=== PATIENT | female | born 1940 | race Caucasian/White ===

== ENCOUNTER → 2017-01-09 09:45 | Outpatient (CLI) | payer MEDICARE, OTHER ==
[2016-03-10 07:57] VITALS: BMI 27.6
[~2017-01-09 09:45] MED LIST: ACIPHEX20 MG PO; ALLEGRA 60 MG T60 MG PO; ANTIVERT12.5 MG PO; BACTROBAN NASAL1 GM NASAL; BAYER CHEWABLE81 MG PO; BENADRYL CREA28.3 GM TP; BENADRYL INJ50 MG/ML IV; CHLORASEPTIC20 ML PO; COLACE100 MG PO; COUMADIN3 MG PO; COUMADIN5 MG PO; DULCOLAX10 MG/SUPP RC; ELIQUIS2.5 MG PO; FISH OIL 500 MG1 CAP PO; FLUTICASONE PRO16 GM NS; GAS-X80 MG PO; HYDROCODON-ACE1 EAC7 PO; HYDROCODONE-APA1 TAB PO; IMDUR30 MG PO; K-DUR20 MEQ PO; LASIX20 MG PO; LEVSIN/ANASP0.125 MG PO; LORTAB 5/500 TA1 TA2 PO; MIRALAX17 GM PO; MS CONTIN15 MG PO; NARCAN; NIASPAN500 MG PO; NORCO 10/325 TA1 TA1 PO; ONDANSETRON4 MG/2 M3 IV; PHOS FLUR; PHOS-NAK PAC1 PACKET PO; PLAVIX75 MG PO; PRILOSEC20 MG PO; PROTONIX40 MG PO; SENOKOT-S TABLE1 TAB PO; TOFRANIL10 MG PO; TRUSOPT 2 % OPT10 ML EACH EYE; WELCHOL625 MG PO; XALATAN 0.0052.5 ML EACH EYE; ZOFRAN4 MG PO
== END | disposition home or self-care (01) ==
LOC: D.NM 09:45
DX: M17.12 Unilateral primary osteoarthritis, left knee (principal)

== ENCOUNTER 2017-03-03 16:17 | Emergency (ER) | payer MEDICARE, OTHER ==
[2016-03-10 07:57] VITALS: BMI 27.6
[2017-03-03 18:00] LABS: BASOPHILS 0.3 % (0-2); EOSINOPHILS 2.3 % (0-7); HEMATOCRIT 39.9 % (36.0-48.0); HEMOGLOBIN 13.1 g/dL (12-16); IMMATURE GRANULOCYTES 0.3 % (0-5); LYMPHOCYTES 22.9 % (15-50); MCH 28.4 pg (26.0-34.0); MCHC 32.8 g/dL (31.0-37.0); MCV 86.6 fL (80.0-100.0); MEAN PLATELET VOLUME 10.9 fL (7.4-10.4); MONOCYTES 7.3 % (2-11); NEUTROPHILS 66.9 % (40-80); PLATELET COUNT 350 10x3/uL (130-400); RBC 4.61 10x6/uL (4.00-5.40); RDW 12.7 % (11.5-14.5); WBC 10.3 10x3/uL (4.8-10.8)
[2017-03-03 18:05] LABS: APPEARANCE CLEAR (CLEAR); BILIRUBIN NEGATIVE (NEGATIVE); COLOR YELLOW (YELLOW); GLUCOSE NEGATIVE (NEGATIVE); KETONE NEGATIVE (NEGATIVE); LEUKOCYTE ESTERASE 1+ (NEGATIVE); NITRITE NEGATIVE (NEGATIVE); PROTEIN NEGATIVE (NEGATIVE); SPECIFIC GRAVITY 1.015 (1.005-1.020); UROBILINOGEN NORMAL (NORMAL)
[2017-03-03 18:07] LABS: BACTERIA FEW /hpf (NONE SEEN); EPITHELIAL CELLS 0-5 /hpf (0-5); RED CELLS - URINE 0-5 /hpf (0-5)
[2017-03-03 18:14] LABS: ALBUMIN 3.4 g/dL (3.4-5.0); ALKALINE PHOSPHATASE 116 U/L (46-116); ALT (SGPT) 39 U/L (10-68); BILIRUBIN - TOTAL 0.39 mg/dL (0.2-1.3); CALC OSMOLALITY 275 mosm/kg (275-300); CALCIUM 8.9 mg/dL (8.5-10.1); CARBON DIOXIDE 30.2 mmol/L (21.0-32.0); CHLORIDE - SERUM 99 mmol/L (98-107); CREATININE - SERUM 1.1 mg/dL (0.6-1.3); GLUCOSE 158 mg/dL (74-106); POTASSIUM - SERUM 3.7 mmol/L (3.5-5.1); PROTEIN - SERUM 7.7 g/dL (6.4-8.2); SODIUM 136 mmol/L (136-145); UREA NITROGEN 15 mg/dL (7-18); eGFR NON AFRICAN AMERICAN 51 mL/min (90-120)
[2017-03-03 18:17] LABS: TROPONIN-I < 0.017 ng/mL (0.000-0.060)
== END 2017-03-03 21:47 | disposition home or self-care (01) ==
LOC: D.ER 16:17
PROVIDERS: Nurse Practitioner Family
DX: R06.00 Dyspnea, unspecified (principal); H40.9 Unspecified glaucoma; Z95.1 Presence of aortocoronary bypass graft

== ENCOUNTER → 2017-03-28 13:51 | Outpatient (CLI) | payer MEDICARE, OTHER ==
[2016-03-10 07:57] VITALS: BMI 27.6
== END | disposition home or self-care (01) ==
LOC: D.CT 13:51
DX: M54.5 Low back pain (principal)

== ENCOUNTER → 2017-09-11 16:07 | Outpatient (CLI) | payer MEDICARE, OTHER ==
[2016-03-10 07:57] VITALS: BMI 27.6
== END | disposition home or self-care (01) ==
LOC: D.LABREF 16:07
DX: N39.0 Urinary tract infection, site not specified (principal)

== ENCOUNTER → 2017-09-13 07:28 | Outpatient (CLI) | payer MEDICARE, OTHER ==
[2016-03-10 07:57] VITALS: BMI 27.6
== END | disposition home or self-care (01) ==
LOC: D.RAD 07:28
DX: R10.9 Unspecified abdominal pain (principal)

== ENCOUNTER → 2017-09-14 13:20 | Outpatient (CLI) | payer MEDICARE, OTHER ==
[2016-03-10 07:57] VITALS: BMI 27.6
== END | disposition home or self-care (01) ==
LOC: D.CT 13:20
DX: R10.9 Unspecified abdominal pain (principal); I73.9 Peripheral vascular disease, unspecified

== ENCOUNTER → 2018-07-24 17:38 | Outpatient (CLI) | payer MEDICARE, OTHER ==
[2016-03-10 07:57] VITALS: BMI 27.6
== END | disposition home or self-care (01) ==
LOC: D.LABREF 17:38
PROVIDERS: Urology
DX: R31.9 Hematuria, unspecified (principal); D72.829 Elevated white blood cell count, unspecified

== ENCOUNTER 2018-10-31 16:50 | Outpatient (CLI) | payer MEDICARE, OTHER ==
[~2018-10-31] VITALS: Ht 175.3 cm; Wt 66.4 kg
--- NOTE | ~2018-10-31 | HEMODYNAMI ---
PATIENT:JEFF RICHARDSON MEDICAL RECORD: [id number] : 40 LOCATION:[facility].2121 ADMISSION DATE: 10/31/18 Generatedon:11/01/20189:02 Patient name: JEFF RICHARDSON Patient #: [id number] SSN: : 1940 Date of study: 11/01/2018 Page: Of Hemodynamic Procedure Report Patient Data Patient Demographics Procedure consent was obtained First Name: JEFF Gender: Female Last Name: DEBRA : 1940 Middle Initial: HCRISTIANO Age: 77 year(s) Patient #: [id number] Race: Additional ID: [id number] Contact details Address: [address] [place] [address] State: [place] City: [place] Zip code: [address] Past Medical History Allergies Allergen Reaction Date Comments Reported Other allergy 03/08/2016 Iodine, Prednisone, Morphine Admission Admission Data Admission Date: 10/31/2018 Admission Time: 18:27 Room #: [facility] Procedure Procedure Types Cath Procedure Diagnostic Procedure LHC LHC w/Coronaries w/Grafts Sedation Charges Moderate Sedation up to 15 minutes PCI Procedure Coronary Stent Coronary Stent Initial PTCA PTCA Additional Procedure Description Procedure Date Procedure Date: 11/01/2018 Procedure Start Time: 8:41 Procedure End Time: 8:59 Procedure Staff Name Function Eyad Caceres MD Performing Physician Ananya Muniz RT Monitor Aislinn Lui RT Scrub Lance Hatch RN Nurse Procedure Data Cath Procedure Fluoroscopy Diagnostic fluoroscopy Total fluoroscopy Time: 6.5 time: 6.5 min min Diagnostic fluoroscopy Total fluoroscopy dose: 917 dose: 917 mGy mGy Contrast Material Contrast Material Type Amount (ml) Isovue 300 127 Entry Location Entry Primary Successful Side Size Upsize Upsize Entry Closure Succes sful Closure Location (Fr) 1 (Fr) 2 (Fr) Remarks Device Remarks Femoral Right 5 Fr 6 Fr Exoseal artery Short Estimated blood loss: 5 ml Diagnostic catheters Device Type Used For End Catheter Placement MULTIPACK Pigtail 5 Fr LV Angiography catheter MULTIPACK JL 4.0 5Fr Left Coronary catheter Angiography MULTIPACK 3DRC 5Fr Right Coronary catheter Angiography Procedure Complications No complications Procedure Medications Medication Administration Route Dosage Oxygen etCO2 Nasal cannula 2 l/min Lidocaine 2% added to field 20 Heparin Flush Bag added to field 2 bags (1000units/500ml NS) 0.9% NaCl I.V. 100 ml/hr Versed I.V. 1 mg Fentanyl I.V. 50 mcg Versed I.V. 1 mg Fentanyl I.V. 50 mcg Heparin Bolus I.V. 4000 units Plavix P.O. 75 mg Hemodynamics Rest Heart Rate: 64 (bpm) Pressure Samples Time Site Value (mmHg) Purpose Heart Use Rate(bpm) 8:43 LV 116/14,36 Snapshot 61 Snapshots Pre Cath Intra NCS Post Cath Vital Signs Time Heart Resp SPO2 etCO2 NIBP (mmHg) Rhythm Pain Sedation Rate (ipm) (%) (mmHg) Status Level (bpm) 8:31:25 61 26 98 0 161/67(87) NSR 0 (11) 10(A) , No pain 8:35:49 61 18 98 36.8 150/69(96) NSR 0 (11) 10(A) , No pain 8:40:10 61 15 100 30.8 158/71(104) NSR 0 (11) 10(A) , No pain 8:44:32 59 14 93 12 140/59(92) NSR 0 (11) 9(A) , No pain 8:48:52 62 14 94 9.7 120/55(92) NSR 0 (11) 9(A) , No pain 8:54:15 62 15 94 23.3 112/42(82) NSR 0 (11) 9(A) , No pain 8:58:25 63 22 95 28.6 120/58(87) NSR 0 (11) 10(A) , No pain Medications Time Medication Route Dose Verified Delivered Reason Notes Effectiveness by by 8:32:37 Oxygen etCO2 2 Eyad Lucas used for Nasal l/min Nicki Hatch RN procedure cannula 8:39:21 Versed I.V. 1 mg Eyad Lucas for sedation Nicki Hatch RN 8:39:26 Fentanyl I.V. 50 Eyad Martinsie for sedation mcg Nicki Hatch RN 8:44:44 Lidocaine 2% added 20ml Eyad Eyad for local to vial Nicki Caceres MD anesthetic field 8:44:51 Heparin Flush added 2 Eyadmavis Castano used for Bag to bags Nicki Caceres MD procedure (1000units/500ml field NS) 8:45:15 0.9% NaCl I.V. 100 Eyadmavis Martinsie Per physician ml/hr Nicki Hatch RN 8:47:54 Versed I.V. 1 mg Eyad Lucas for sedation Nicki Hatch RN 8:47:58 Fentanyl I.V. 50 Eyad Buffie for sedation mcg Nicki Hatch RN 8:51:29 Heparin Bolus I.V. 4000 Eyad Buffie for verifi ed units Nicki Hatch RN anticoagulation with dr caceres 9:00:42 Plavix P.O. 75 mg Eyad Lucas for Nicki Hatch RN antiplatelet therapy Procedure Log Time Note 8:16:38 Ananya Muniz RT(R) sent for patient. Start room use. 8:16:40 Time tracking: Regular hours (M-F 7:00 - 5:00) 8:16:48 Plan of Care:Hemodynamics will remain stable., Cardiac rhythm will remain stable., Comfort level will be maintained., Respiratory function will remain adequate., Patient/ family verbilizes understanding of procedure., Procedure tolerated without complication., Recovers from procedure without complications.. 8:19:48 Patient received from Med II to CCL 2 Alert and oriented. Tansferred to table in Supine position. 8:19:49 Warm blankets applied, and vivian hugger turned on for patient comfort. 8:19:49 Correct patient and procedure confirmed by team. 8:19:51 Signed procedure consent form obtained from patient. 8:19:52 ECG and BP/O2 sat monitors applied to patient. 8:30:07 Vital chart was started 8:30:09 Baseline sample Acquired. 8:30:13 Rhythm: sinus rhythm 8:30:15 Full Disclosure recording started 8:30:18 H&P Date Dictated: 11/01/2018 Within 30 days and on chart., H&P Addendum completed by physician on day of procedure. (MUST COMPLETE FOR ALL OUTPATIENTS). 8:30:19 Pre-procedure instructions explained to patient. 8:30:20 Pre-op teaching completed and patient verbalized understanding. 8:30:21 Family in waiting room. 8:30:22 Patient NPO since Midnight. 8:30:25 Is the patient allergic to Iodine/contrast media? Yes. 8:30:26 Was the patient premedicated? Yes 8:30:28 Is patient on blood thinner?Yes 8:30:30 ACC The patient was administered the following blood thiners within the last 24 hours: ACCPlavix 8:30:33 Patient diabetic? Yes. 8:30:34 If diabetic: On Metformin? No 8:30:36 Previous problem with sedation/anesthesia? No ? 8:30:43 Snore? Yes 8:30:45 Sleep apnea? No 8:30:46 Deviated septum? No 8:30:46 Opens mouth fully? Yes 8:30:47 Sticks out tongue? Yes 8:30:49 Airway obstruction? No ? 8:30:52 Dentures? No ? 8:30:56 Pre procedure: right dorsailis pedis pulse 2+ Normal; easily identifiable; not easily obliterated 8:30:59 Pre procedure: left dorsailis pedis pulse 2+ Normal; easily identifiable; not easily obliterated 8:31:01 Patient pain scale 0/10 ?. 8:31:12 IV patent on arrival in right forearm with 0.9% NaCl at [facility]. 8:31:14 Lab results completed and on chart. 8:31:18 Right groin area was prepped with chlora-prep and draped in sterile fashion 8:31:19 Alarms reviewed by R. N. 8:31:20 Sharps counted by scrub and verified by R.N. 8:32:37 Oxygen 2 l/min etCO2 Nasal cannula was administered by Lance Hatch RN; used for procedure; 8:35:54 Physician arrived 8:35:55 --------ALL STOP TIME OUT------ 8:35:55 Final Timeout: patient, procedure, and site verified with staff and physician. All members of the team are in agreement. 8:35:58 Right groin site verified by team. 8:36:01 Physical assessment completed. ASA score P 2 - A patient with mild systemic disease as per Eyad Caceres MD. 8:36:04 Sedation plan: IV Moderate Sedation Medication:Versed, Fentanyl 8:36:14 Use device set Femoral Dx 8:36:16 ACIST Syringe (90507) opened to sterile field. 8:36:16 Bag Decanter (2002S) opened to sterile field. 8:36:17 Medline Cath Pack ([id number]) opened to sterile field. 8:36:17 DIAGNOSTIC WIRE .035 260cm J wire (243850) opened to sterile field. 8:36:19 ACIST Hand Control (54517) opened to sterile field. 8:36:19 ACIST Manifold (09455) opened to sterile field. 8:36:20 DIAGNOSTIC Multipack 5Fr catheter set (TM2782) opened to sterile field. 8:36:21 Tegaderm 4 x 4 (1626W) opened to sterile field. 8:36:22 SHEATH 5FR [place] (QKI747) opened to sterile field. 8:37:34 Procedure type changed to Cath procedure, Diagnostic procedure, LHC, LHC w/Coronaries w/Grafts, Sedation Charges, Moderate Sedation up to 15 minutes, PCI procedure, Coronary Stent, Coronary Stent Initial, PTCA, PTCA Additional 8:39:21 Versed 1 mg I.V. was administered by Lance Hatch RN; for sedation; 8:39:26 Fentanyl 50 mcg I.V. was administered by Lance Hatch RN; for sedation; 8:41:24 Procedure started. 8:41:29 Local anesthetic to right femoral artery with Lidocaine 2% by Eyad Caceres MD.INITIAL ACCESS ONLY 8:42:25 A 5 Fr sheath was inserted into the Right Femoral artery 8:42:59 A MULTIPACK Pigtail 5 Fr catheter was advanced over the wire and used for LV Angiography. 8:43:50 LV hemodynamics recorded. 8:43:51 LV gram done using GOLDBERG 8:43:54 Injector settings: Ml/sec: 5, Volume: 15, 8:43:58 EF : 60 % 8:44:02 Catheter removed. 8:44:06 A MULTIPACK JL 4.0 5Fr catheter was advanced over the wire and used for Left Coronary Angiography. 8:44:44 Lidocaine 2% 20ml vial added to field was administered by Eyad Caceres MD; for local anesthetic; 8:44:51 Heparin Flush Bag (1000units/500ml NS) 2 bags added to field was administered by Eyad Caceres MD; used for procedure; 8:45:15 0.9% NaCl 100 ml/hr I.V. was administered by Lance Hatch RN; Per physician; 8:46:53 Catheter removed. 8:46:59 A MULTIPACK 3DRC 5Fr catheter was advanced over the wire and used for Right Coronary Angiography. 8:47:02 RCA angiography performed. 8:47:04 Injector settings: Ml/sec: 3, Volume: 6, 8:47:48 SVG to Diag angiography performed. 8:47:54 Versed 1 mg I.V. was administered by Lance Hatch RN; for sedation; 8:47:58 Fentanyl 50 mcg I.V. was administered by Lance Hatch RN; for sedation; 8:48:40 RCA angiography performed. 8:48:43 Injector settings: Ml/sec: 3, Volume: 6, 8:48:56 Catheter removed. 8:49:14 SHEATH 6FR [place] (JBC708) opened to sterile field. 8:49:15 INFLATOR Merit BasixCompak (CZ9340) opened to sterile field. 8:49:16 CHOICE PT Extra Support 182cm wire ([id number]) opened to sterile field. 8:50:39 GUIDE 6FR EBU 3.0 catheter ([id number]) opened to sterile field. 8:50:49 Sheath upsized to a 6 Fr Short. 8:50:54 6 Fr ebu 3 guide catheter was inserted over the wire 8:51:00 choice pt wire advanced. 8:51:29 Heparin Bolus 4000 units I.V. was administered by Lance Hatch RN; for anticoagulation; verified with dr caceres 8:53:11 Inflate balloon Inflation number: 1 A EUPHORA 3.0 x 15 Balloon ([id number]) was prepped and advanced across the Prox LAD, then inflated to 15 LINDSAY for 0:10 (min:sec). 8:53:24 Inflation number: 2 The EUPHORA 3.0 x 15 Balloon ([id number]) was reinflated across the Prox LAD, to 15 LINDSAY for 0:10 (min:sec). 8:53:44 Inflation number: 3 The EUPHORA 3.0 x 15 Balloon ([id number]) was reinflated across the Prox LAD, to 15 LINDSAY for 0:10 (min:sec). 8:54:10 Inflation number: 4 The EUPHORA 3.0 x 15 Balloon ([id number]) was reinflated across the Prox LAD, to 15 LINDSAY for 0:10 (min:sec). 8:54:34 Balloon removed over the wire. 8:56:29 Place stent Inflation Number: 5 A INTEGRITY RX 2.5 x 08 stent ([id number]) was prepped and advanced across the Prox LAD. The stent was deployed at 11 LINDSAY for 0:10 (min:sec). 8:56:53 Inflation number: 6 The stent balloon was then re-inflated across the Prox LAD to 15 LINDSAY for 0:10 (min:sec). 8:57:28 Wire redirected to diag. 8:57:44 Inflation number: 1 The stent balloon was then re-inflated across the 1st Diag to 21 LINDSAY for 0:10 (min:sec). 8:58:12 Stent catheter was removed intact over wire. 8:58:13 Wire removed. 8:58:13 Guide catheter removed. 8:58:19 EXOSEAL 6Fr (EX600) opened to sterile field. 8:58:31 Sheath removed intact; hemostasis achieved with Exoseal to the Right Femoral artery. 8:58:33 Procedure ended.(Physican Out) 8:58:41 Fluoroscopy time 06.50 minutes. 8:58:49 Flurop Dose total: 917 8:58:49 Fluoroscopy dose: 917 mGy 8:58:53 Contrast amount:Isovue 300 127ml. 8:58:54 Sharps counted by scrub and verified by R.N. 8:58:55 Insertion/operative site no bleeding no hematoma. 8:58:58 Post-op/insertion site Right Femoral artery dressed using a 4 x 4 and Tegaderm. 8:59:00 Post right femoral artery:stable 8:59:02 Post Procedure Pulses reassessed and unchanged 8:59:04 Post procedure rhythm: unchanged. 8:59:07 Estimated blood loss: 5 ml 8:59:08 Post procedure instruction explained to patient.Patient verbalizes understanding. 8:59:09 Patient needs reinforcement of post procedure teaching. 8:59:09 Procedure and supply charges have been captured, reviewed, submitted and are correct. 8:59:16 Procedure Complication : No complications 8:59:18 Vital chart was stopped 8:59:18 See physician's report for complete and final results. 8:59:21 Report given to [facility]. 8:59:23 Patient transfered to [facility] with Stretcher. 8:59:25 Procedure ended. 8:59:25 Full Disclosure recording stopped 8:59:57 ACC-PCI Only Patient was given prescriptions, or instructed by Eyad Caceres MD to start/continue the following medications upon discharge: Plavix 8:59:59 End room use (Document Last) 9:00:42 Plavix 75 mg P.O. was administered by Lance Hatch RN; for antiplatelet therapy; Intervention Summary Intervention Notes Time ActionType Lesion and Equipment Action# Pressure Duration Attributes Used 8:53:11 Inflate Prox LAD EUPHORA 3.0 1 15 00:10 balloon x 15 Balloon ([id number]) 8:53:24 Reinflate Prox LAD EUPHORA 3.0 2 15 00:10 balloon x 15 Balloon ([id number]) 8:53:44 Reinflate Prox LAD EUPHORA 3.0 3 15 00:10 balloon x 15 Balloon ([id number]) 8:54:10 Reinflate Prox LAD EUPHORA 3.0 4 15 00:10 balloon x 15 Balloon ([id number]) 8:56:29 Place stent Prox LAD INTEGRITY RX 5 11 00:10 2.5 x 08 stent ([id number]) 8:56:53 Reinflate Prox LAD INTEGRITY RX 6 15 00:10 stent 2.5 x 08 balloon stent ([id number]) 8:57:44 Reinflate 1st Diag INTEGRITY RX 1 21 00:10 stent 2.5 x 08 balloon stent ([id number]) Device Usage Item Name Manufacture Quantity Catalog Number Hospital Part Current Mini [facility] Lot# / Charge Number Stock Stock Serial# Code ACIST Acist 1 93009 990857 842456 264632 20 Syringe Medical (47924) Systems Inc Bag Decanter Microtek 1 009405 03348 293206 5 () Medical Inc. Medline Cath Medline 1 [id number] 387415 12946 483519 5 Pack ([id number]) DIAGNOSTIC St Oscar 1 526271 626626 876028 087973 30 WIRE .035 260cm J wire (832986) ACIST Hand Acist 1 40905 439779 960560 518225 5 Control Medical (11219) Systems Inc ACIST Acist 1 58936 019871 503973 961031 5 Manifold Medical (45636) Systems Inc DIAGNOSTIC Cardinal 1 RR6206 480232 59093 287799 30 Multipack Health 5Fr catheter set (GF9817) Tegaderm 4 x 3M 1 1626W 526126 906650 254377 5 4 (1626W) SHEATH 5FR Terumo 1 GUT557 977023 651615 471847 5 [place] (LUK381) MULTIPACK Cardinal 1 614236 5 Pigtail 5 Fr Health catheter MULTIPACK JL Cardinal 1 208128 5 4.0 5Fr Health catheter MULTIPACK Cardinal 1 302726 5 3DRC 5Fr Health catheter SHEATH 6FR Terumo 1 LNX586 792511 756301 417760 40 [place] (RLL198) INFLATOR Merit 1 NS9626 955712 357279 428295 15 Merit [facility] [place] Medical BasixCompak (BO5374) CHOICE PT [place] 1 [id number] 310681 385974 969651 5 Extra Scientific Support 182cm wire ([id number]) GUIDE 6FR Medtronic 1 [id number] 789130 48931 994799 0 EBU 3.0 catheter (BG6DBK77) EUPHORA 3.0 Medtronic 1 [id number] 293254 369309 033212 5 [id number] x 15 Balloon ([id number]) INTEGRITY RX Medtronic 1 [id number] 826581 555795 973439 5 [id number] 2.5 x 08 stent ([id number]) EXOSEAL 6Fr Cardinal 1 EX600 099028 629616 716450 10 (EX600) Health Signature Audit [place] Stage Time Signature Unsigned Intra-Procedure 11/01/2018 Aislinn Lui 9:02:03 AM RT(R) Signatures Monitor : Ananya Muniz Signature : RT Date : Time : [facility] [address] [place] [address]
[2018-10-31] MEDS ORDERED: REGLAN10 MG PO (17:07)
[2018-10-31] MEDS ORDERED: DEXILANT60 MG PO (17:07)
[2018-10-31 17:31] LABS: BASOPHILS 0.2 % (0-2); EOSINOPHILS 3.1 % (0-7); IMMATURE GRANULOCYTES 0.2 % (0-5); MCH 30.1 pg (26.0-34.0); MCHC 34.1 g/dL (31.0-37.0); MCV 88.2 fL (80.0-100.0); MEAN PLATELET VOLUME 10.8 fL (7.4-10.4); MONOCYTES 8.4 % (2-11); NEUTROPHILS 62.1 % (40-80); RBC 4.65 10x6/uL (4.00-5.40); RDW 12.4 % (11.5-14.5); WBC 8.8 10x3/uL (4.8-10.8)
[2018-10-31 17:34] LABS: PLATELET COUNT 278 10x3/uL (130-400)
[2018-10-31 17:40] VITALS: BP 139/63
[2018-10-31 17:45] LABS: ALBUMIN 3.4 g/dL (3.4-5.0); ALKALINE PHOSPHATASE 120 U/L (46-116); ALT (SGPT) 14 U/L (10-68); BILIRUBIN - TOTAL 0.24 mg/dL (0.2-1.3); CALC OSMOLALITY 280 mosm/kg (275-300); CALCIUM 8.8 mg/dL (8.5-10.1); CARBON DIOXIDE 23.4 mmol/L (21.0-32.0); CHLORIDE - SERUM 101 mmol/L (98-107); CREATININE - SERUM 1.3 mg/dL (0.6-1.3); GLUCOSE 160 mg/dL (74-106); POTASSIUM - SERUM 4.2 mmol/L (3.5-5.1); PROTEIN - SERUM 7.5 g/dL (6.4-8.2); SODIUM 138 mmol/L (136-145); UREA NITROGEN 17 mg/dL (7-18); eGFR NON AFRICAN AMERICAN 42 mL/min (90-120)
[2018-10-31 18:02] LABS: CKMB 0.7 U/L (0.0-3.6); CREATINE KINASE 70 UL (21-215); TROPONIN-I < 0.017 ng/mL (0.000-0.060)
[2018-10-31 20:00] VITALS: BP 124/64
[2018-10-31 22:33] VITALS: BP 124/69; Ht 175.3 cm; Wt 66.4 kg
[2018-11-01] VITALS: BP 122/58
[2018-11-01 05:23] VITALS: BP 139/62
[2018-11-01 08:33] VITALS: BP 165/59
[2018-11-01 12:05] VITALS: BP 135/62
[2018-11-01] MEDS ORDERED: PLAVIX75 MG PO (13:12)
--- NOTE | 2018-11-01 13:37 | OP ---
PATIENT NAME: JEFF RICHARDSON MEDICAL RECORD: [id number] :40 LOCATION:D.M2 D.2121 ADMISSION DATE:10/31/18 SURGEON: ANDRIY HARKINS MD DATE OF OPERATION: 11/01/2018 PROCEDURES: 1. PTCA stent LAD. 2. PTCA LAD diagonal. 3. Left heart catheterization. 4. Selective coronary angiography. 5. Left ventriculogram. INDICATION: Unstable angina and coronary artery disease. PROCEDURE IN DETAIL: After informed consent was obtained and after a detailed description of risks, benefits as well as alternative therapies, the patient elected to proceed with angiogram and angioplasty. The right femoral area was prepped and draped in normal sterile fashion. Right femoral artery was cannulated via modified Seldinger technique with placement of 6-Bahraini sheath. All catheters exchanged through this sheath. FINDINGS: Left ventriculogram was performed in standard 30-degree GOLDBERG view, reveals good cardiac wall motion throughout all segments. Overall ejection fraction estimated 60%. SELECTIVE CORONARY ANGIOGRAPHY: 1. Left main is with no significant angiographic disease. 2. Left anterior descending has previously placed stents in the LAD and the second diagonal, both have greater than 70% in-stent restenosis. 3. The circumflex has moderate irregularities, but no flow-limiting stenosis. 4. The right coronary artery has previously placed stents, these are widely patent with no significant restenosis. No disease elsewise throughout the RCA or its branches. 5. Vein graft to the first diagonal is widely patent. Distal first diagonal is widely patent. PTCA STENT OF THE LAD: The stent used is a 2.5 x 8 mm Integrity. The stent balloon was then used for the diagonal with inflations up to 21 atmospheres. Result was 0% residual. IMPRESSION: Successful PTCA stent of the LAD and PTCA of the diagonal, both going from 70% to 80% in-stent restenosis to 0% residual. TRANSINT:[id number] Voice Confirmation ID: [id number] DOCUMENT ID: [id number] ANDRIY HARKINS MD at 1337 CC: [id number] DICTATION DATE: 11/01/18 0908 IMPORT DISPATCHER: 11/01/18 1003 ADM IN [place] [id number] [place] [id number]
--- NOTE | 2018-11-01 13:37 | HP ---
PATIENT: JEFF NAYAK MEDICAL RECORD: [id number] ACCOUNT: [id number] LOCATION:[address] : 40 ADMISSION DATE: 10/31/18 PCP: BUBBA BLACKBURN MD HISTORY AND PHYSICAL EXAMINATION DIAGNOSES: 1. Unstable angina. 2. Coronary artery disease. 3. Previous percutaneous transluminal coronary angioplasty and stent. HISTORY OF PRESENT ILLNESS: Ms. Nayak has had chest discomfort that started today. She has had multiple episodes, it is like that of her previous angina. Last cardiac intervention was in 2016. Her EKG is with nonspecific ST-T abnormalities. She continues to have episodes of pain. PHYSICAL EXAMINATION: GENERAL APPEARANCE: Well nourished, well developed, appears stated age. Level of distress, comfortable. PSYCHIATRIC: Mental status, alert, normal affect. Orientation, oriented to time, place and person. EYES: Lids and conjunctiva, noninjected. No discharge, no pallor. ENT: Lips, teeth, gums, normal dentition. Oropharynx, no cyanosis, no pallor. NECK: Carotid arteries, bilateral normal upstroke, no bruits, no thrills. JUGULAR VEINS: No jugular venous pressure or distention. CERVICAL LYMPH NODES: Nontender, nonenlarged. THYROID: Not enlarged. Nontender. No nodules. LUNGS: Respiratory effort, unlabored. CHEST: Normal curvature. No thoracic deformity. No chest wall tenderness. Percussion, resonant. Auscultation, clear. No wheezes, no rales, no rhonchi. CARDIOVASCULAR: Precordial exam, nondisplaced. No heaves or pericardial thrills. Rate and rhythm, regular. Heart sounds, normal S1, normal S2. No S3, no gallop, no rub. Systolic murmur, not heard. Diastolic murmur, not heard. EXTREMITIES: No cyanosis, no edema. Peripheral pulses, full and equal in all extremities, except as noted. No bruits appreciated. ABDOMEN: Soft, nondistended. Normal aorta. No bruit. Nontender. No masses. Liver, nontender, no hepatomegaly. Spleen, nontender, no splenomegaly. MUSCULOSKELETAL: No joint tenderness. No joint swelling. No erythema. NEUROLOGICAL: Normal gait, normal strength, normal tone. SKIN: Warm and dry. OVERALL IMPRESSION: Chest pain in an unstable fashion. We will load with Plavix. SHE IS ALLERGIC TO IODINE. We will give her steroids tonight and tomorrow. Proceed with coronary angiography in the a.m. TRANSINT:[id number] Voice Confirmation ID: [id number] DOCUMENT ID: [id number] HISTORY AND PHYSICAL [id number] JEFF NAYAK JEFFREY MD at 1337 CC: [id number] DICTATION DATE: 10/31/181828 HUMAN RESOURCES BENEFITS MANAGER: 10/31/182016 ADM IN [facility] [address] [place] [address]
--- NOTE | 2018-11-01 17:10 | MORECARE ---
CASE MANAGEMENT DISCHARGE SUMMARY PATIENT: JEFF RICHARDSON UNIT: [id number] ADM DATE: 10/31/18 AGE: 77 : 40 SEX: F ROOM/BED: D.0083 AUTHOR: TOÑITO CISNEROS PHYSICIAN: REFERRING PHYSICIAN: ANDRIY HARKINS MD DATE OF SERVICE: 11/01/18 Discharge Plan Patient Name: JEFF RICHARDSON [facility] [facility] 1940 Planned Disposition: Home Anticipated Discharge Date: 11/01/18 Discharge Date: 11/01/2018 Expected LOS: 1 Initial Reviewer: [email or web address] Initial Review Date: 11/01/2018 Generated: 11/01/18 6:10 pm Patient Name: JEFF RICHARDSON Page [id number] at 1710 All edits/amendments must be made on the electronic document DICTATION DATE: 11/01/181708 TAIL END RIDER: LORELEI 11/01/181708 RPT#: [id number] DC DATE:11/01/18 STATUS: DIS IN [facility] [address] [place] [address] END OF REPORT
== END 2018-11-01 15:42 | disposition home or self-care (01) ==
LOC: OBSVTIME → D.ER 16:50 → D.OPS 16:50 → D.M2 18:27 → D.ER 18:27 → OBSVTIME 18:27 → D.ER 19:14 → D.OPS 11-01 15:42 → D.M2 11-01 15:42
PROVIDERS: Family Medicine
DX: I25.110 Atherosclerotic heart disease of native coronary artery with unstable angina pectoris (principal); Z95.5 Presence of coronary angioplasty implant and graft; Z01.812 Encounter for preprocedural laboratory examination

== ENCOUNTER 2019-05-15 21:11 | Observation (INO) | payer MEDICARE, OTHER ==
[~2019-05-15] VITALS: Ht 175.3 cm; Wt 69.6 kg
--- NOTE | ~2019-05-15 | HEMODYNAMI ---
PATIENT:JEFF RICHARDSON MEDICAL RECORD: [id number] : 40 LOCATION:[facility] D.2117 [id number] ADMISSION DATE: 05/16/19 Generatedon:05/16/201914:39 Patient name: JEFF RICHARDSON Patient #: [id number] SSN: : 1940 Date of study: 05/16/2019 Page: Of Hemodynamic Procedure Report Patient Data Patient Demographics Procedure consent was obtained First Name: JEFF Gender: Female Last Name: DEBRA : 1940 Middle Initial: CHRISTIANO Age: 78 year(s) Patient #: [id number] Race: Additional ID: [id number] Contact details [address]: [address] [place] [address] State: [place] City: [place] Zip code: [address] Past Medical History Allergies Allergen Reaction Date Comments Reported Other allergy 03/08/2016 Iodine, Prednisone, Morphine Other allergy 05/16/2019 IODINATED CONTRAST Admission Admission Data Admission Date: 05/16/2019 Admission Time: 0:22 Room #: D.2117 Weight (lbs.): 154.32 Weight (kg.): 70 Lab Results Lab Result Date: 05/16/2019 Lab Result Time: 0:00 Biochemistry Name Units Result Min Max BUN mg/dl 16 --(---*)-- 7 18 Creatinine mg/dl 1 --(--*-)-- 0.6 1.3 eGFR ml/min 57 *-(----)-- 90 120 NONAFRICAN CBC Name Units Result Min Max Hematocrit % 38.9 *-(----)-- 42 54 Hemoglobin g/dl 13.3 -*(----)-- 13.5 17.5 Procedure Procedure Types Cath Procedure Diagnostic Procedure LHC LHC w/Coronaries w/Grafts PCI Procedure Coronary Stent Coronary Stent Initial PTCA PTCA Additional Procedure Description Procedure Date Procedure Date: 05/16/2019 Procedure Start Time: 14:21 Procedure End Time: 14:38 Procedure Staff Name Function Eyad Caceres MD Performing Physician Brandt Manuel RT Monitor Nelsy Galloway RT Scrub Dia Campoverde RT Scrub Usha Faust RN Nurse Procedure Data Cath Procedure Fluoroscopy Diagnostic fluoroscopy Total fluoroscopy Time: 5.4 time: 5.4 min min Diagnostic fluoroscopy Total fluoroscopy dose: 806 dose: 806 mGy mGy Contrast Material Contrast Material Type Amount (ml) Isovue 370 98 Entry Location Entry Primary Successful Side Size Upsize Upsize Entry Closure Succes sful Closure Location (Fr) 1 (Fr) 2 (Fr) Remarks Device Remarks Femoral Right 5 Fr 6 Fr Exoseal artery Short Estimated blood loss: 10 ml Diagnostic catheters Device Type Used For End Catheter Placement MULTIPACK Pigtail 5 Fr Procedure catheter MULTIPACK JL 4.0 5Fr Procedure catheter MULTIPACK 3DRC 5Fr Procedure catheter DIAGNOSTIC AR2 MOD 5 Fr Procedure catheter ([id number]) Procedure Complications No complications Procedure Medications Medication Administration Route Dosage 0.9% NaCl I.V. 100 ml/hr Oxygen etCO2 Nasal cannula 2 l/min Lidocaine 2% added to field 20 Heparin Flush Bag added to field 2 bags (1000units/500ml NS) Versed I.V. 1 mg Fentanyl I.V. 25 mcg Heparin Bolus I.V. 4000 units Hemodynamics Rest HGB: 13.3 (g/dl) Heart Rate: 58 (bpm) Pressure Samples Time Site Value (mmHg) Purpose Heart Use Rate(bpm) 14:26 AO 129/61(91) Snapshot 62 Snapshots Pre Cath Intra NCS Post Cath Vital Signs Time Heart Resp SPO2 etCO2 NIBP (mmHg) Rhythm Pain Sedation Rate (ipm) (%) (mmHg) Status Level (bpm) 14:13:12 59 14 97 36 157/68(114) SB 0 (11) 10(A) , No pain 14:17:36 56 17 96 35.1 139/68(111) SB 0 (11) 9(A) , No pain 14:21:54 56 13 96 35.1 140/64(110) SB 0 (11) 9(A) , No pain 14:26:12 62 16 96 35 139/65(110) SB 0 (11) 9(A) , No pain 14:30:30 64 15 96 36.5 135/65(101) SB 0 (11) 9(A) , No pain 14:34:46 65 16 96 38 142/65(110) SB 0 (11) 10(A) , No pain Medications Time Medication Route Dose Verified Delivered Reason Notes Effectiveness by by 14:12:07 0.9% NaCl I.V. 100 Eyad Usha used for ml/hr Nicki Faust tennis coach 14:12:13 Oxygen etCO2 2 Eyad Usha used for Nasal l/min Nicki Faust procedure cannula RN 14:12:18 Lidocaine 2% added 20ml Eyad Eyad for local to vial Nicki Caceres MD anesthetic field 14:12:21 Heparin Flush added 2 Eyad Eyad used for Bag to bags Nicki Caceres MD procedure (1000units/500ml field NS) 14:15:40 Versed I.V. 1 mg Eyad Usha for sedation Nicki Faust RN 14:15:51 Fentanyl I.V. 25 Eyad Usha for sedation mcg Nicki Faust RN 14:26:00 Heparin Bolus I.V. 4000 Eyad Orozcoyla for verif ied units Nicki Faust anticoagulation with Dr. MARGARETH Caceres Procedure Log Time Note 13:53:52 Signed procedure consent form obtained from patient. 13:53:53 Diagnostic Cath status Urgent 13:53:54 Time tracking: Regular hours (M-F 7:00 - 5:00) 13:53:58 Plan of Care:Hemodynamics will remain stable., Cardiac rhythm will remain stable., Comfort level will be maintained., Respiratory function will remain adequate., Patient/ family verbilizes understanding of procedure., Procedure tolerated without complication., Recovers from procedure without complications.. 13:54:00 Usha Faust RN sent for patient. Start room use. 13:54:42 Patient allergic to Other allergyIODINATED CONTRAST 13:54:51 Patient Weight : 154.32 lbs 13:55:26 Lab Result : Creatinine 1 mg/dl 13:55:26 Lab Result : BUN 16 mg/dl 13:55:26 Lab Result : Hemoglobin 13.3 g/dl 13:55:26 Lab Result : eGFR NONAFRICAN 57 ml/min 13:55:26 Lab Result : Hematocrit 38.9 % 14:03:27 Patient received from Med II to CCL 1 Alert and oriented. Tansferred to table in Supine position. 14:03:28 Warm blankets applied, and vivian hugger turned on for patient comfort. 14:03:28 Correct patient and procedure confirmed by team. 14:03:29 ECG and BP/O2 sat monitors applied to patient. 14:11:56 Vital chart was started 14:12:07 0.9% NaCl 100 ml/hr I.V. was administered by Usha Faust RN; used for procedure; 14:12:13 Oxygen 2 l/min etCO2 Nasal cannula was administered by Usha Faust RN; used for procedure; 14:12:18 Lidocaine 2% 20ml vial added to field was administered by Eyad Caceres MD; for local anesthetic; 14:12:21 Heparin Flush Bag (1000units/500ml NS) 2 bags added to field was administered by Eyad Caceres MD; used for procedure; 14:12:27 Baseline sample Acquired. 14:12:32 Rhythm: sinus bradycardia 14:12:34 Full Disclosure recording started 14:12:44 H&P Date Dictated: 05/15/2019 Within 30 days and on chart.. 14:12:45 Pre-procedure instructions explained to patient. 14:12:46 Pre-op teaching completed and patient verbalized understanding. 14:12:49 Family in patients room. 14:12:50 Patient NPO since Midnight. 14:12:53 Is the patient allergic to Iodine/contrast media? Yes. 14:12:55 Is patient on blood thinner?Yes 14:13:00 ACC The patient was administered the following blood thiners within the last 24 hours: ACCPlavix 14:13:02 Patient diabetic? No. 14:13:04 Previous problem with sedation/anesthesia? No ? 14:13:05 Snore? Yes 14:13:13 Sleep apnea? No 14:13:15 Deviated septum? No 14:13:16 Opens mouth fully? Yes 14:13:16 Sticks out tongue? Yes 14:13:18 Airway obstruction? No ? 14:13:20 Dentures? No ? 14:13:23 Pre procedure: right dorsailis pedis pulse 1+ Palpable, but thready & weak; easily obliterated 14:13:27 Patient pain scale 0/10 ?. 14:13:33 IV patent on arrival in left forearm with 0.9% NaCl at [facility]. 14:13:36 Lab results completed and on chart. 14:13:39 Right groin area was prepped with chlora-prep and draped in sterile fashion 14:13:41 Alarms reviewed by R. N. 14:13:41 Sharps counted by scrub and verified by R.N. 14:13:44 Use device set Femoral Dx 14:13:46 Tegaderm 4 x 4 (1626W) opened to sterile field. 14:13:47 ACIST Manifold (96843) opened to sterile field. 14:13:51 ACIST Hand Control (72616) opened to sterile field. 14:13:53 ACIST Syringe (10133) opened to sterile field. 14:13:54 Bag Decanter (2002S) opened to sterile field. 14:13:54 Medline Cath Pack ([id number]) opened to sterile field. 14:13:56 DIAGNOSTIC Multipack 5Fr catheter set (YJ1250) opened to sterile field. 14:13:58 EMERALD Guide Wire (502-473) opened to sterile field. 14:13:58 SHEATH 5FR Bayard (MPY989) opened to sterile field. 14:14:48 --------ALL STOP TIME OUT------ 14:14:48 Final Timeout: patient, procedure, and site verified with staff and physician. All members of the team are in agreement. 14:14:51 Right groin site verified by team. 14:14:56 Fire Safety Assessment: A--An alcohol-based skin anteseptic being used preoperatively., C--Open oxygen or nitrous oxide is being used., D--An ESU, laser, or fiber-optic light is being used. 14:15:00 Physical assessment completed. ASA score P 2 - A patient with mild systemic disease as per Eyad Caceres MD. 14:15:11 3a) 45-59 Moderately reduced kidney function. 14:15:28 Maximum allowable contrast does (3.7 X eGFR X 0.75)158 ml. 14:15:32 Sedation plan: IV Moderate Sedation Medication:Versed, Fentanyl 14:15:40 Versed 1 mg I.V. was administered by Usha Faust RN; for sedation; 14:15:51 Fentanyl 25 mcg I.V. was administered by Usha Faust RN; for sedation; 14:21:19 Procedure started. 14:21:26 Local anesthetic to right femoral artery with Lidocaine 2% by Eyad Caceres MD.INITIAL ACCESS ONLY 14:21:37 A 5 Fr sheath was inserted into the Right Femoral artery 14:22:35 A MULTIPACK Pigtail 5 Fr catheter was advanced over the wire and used for Procedure. 14:22:37 LV angiography performed. 14:22:38 LV gram done using GOLDBERG 14:22:43 EF : 55 % 14:23:04 Injector settings: Ml/sec: 7, Volume: 15, 14:23:05 Catheter removed. 14:23:09 A MULTIPACK JL 4.0 5Fr catheter was advanced over the wire and used for Procedure. 14:23:11 LCA angiography performed. 14:24:15 Catheter removed. 14:24:[address] [facility] PCI 14:24:30 SHEATH 6FR Bayard (NRY037) opened to sterile field. 14:24:41 A MULTIPACK 3DRC 5Fr catheter was advanced over the wire and used for Procedure. 14:24:43 INFLATOR Merit BasixCompak (VB1610) opened to sterile field. 14:24:46 GUIDE 6FR XBLAD 3.5 catheter ([id number]) opened to sterile field. 14:24:48 CHOICE PT Extra Support 182cm wire ([id number]) opened to sterile field. 14:25:36 KOLB CLOSED. 14:25:37 RCA angiography performed. 14:25:59 Catheter removed. 14:26:00 Heparin Bolus 4000 units I.V. was administered by Usha Faust RN; for anticoagulation; verified with Dr. Caceres 14:26:12 A DIAGNOSTIC AR2 MOD 5 Fr catheter ([id number]) was advanced over the wire and used for Procedure. 14:26:38 SVG to Circ angiography performed. 14:27:08 Catheter removed. 14:27:20 Sheath upsized to a 6 Fr Short. 14:27:33 Pre PCI Site: [place] Diag1 has 95% stenosis. 14:27:40 6 Fr XBLAD 3.5 guide catheter was inserted over the wire 14:28:16 CPTXS wire advanced. 14:29:44 Pre PCI Site: [place] pLAD has 90% stenosis. 14:30:19 Wire advanced across lesion. 14:30:32 CHOICE PT Extra Support 182cm wire ([id number]) opened to sterile field. 14:30:42 2ND CPTXS wire advanced. 14:31:06 2nd wire advanced down the LAD. 14:33:15 Place stent Inflation Number: 1 A LES RX 2.5 x 12 stent ([id number]) was prepped and advanced across the 1st Diag 0. The stent was deployed at 21 LINDSAY for 0:10 (min:sec) . 14:33:49 Balloon removed over the wire. 14:33:52 Wire removed. 14:34:24 Inflation number: 1 The stent balloon was then re-inflated across the Prox LAD 90 to 17 LINDSAY for 0:10 (min:sec) . 14:34:53 Multiple inflations made at 17 Atms. 14:35:19 Balloon removed over the wire. 14:35:20 Wire removed. 14:35:21 Guide catheter removed. 14:35:34 EXOSEAL 6Fr (EX600) opened to sterile field. 14:35:51 Sheath removed intact; hemostasis achieved with Exoseal to the Right Femoral artery. 14:35:55 Procedure ended.(Physican Out) 14:37:20 Fluoroscopy time 05.40 minutes. 14:37:23 Fluoroscopy dose: 806 mGy 14:37:23 Flurop Dose total: 806 14:37:28 Contrast amount:Isovue 370 98ml. 14:37:29 Sharps counted by scrub and verified by R.N. 14:37:30 Insertion/operative site no bleeding no hematoma. 14:37:33 Post-op/insertion site Right Femoral artery dressed using a 4 x 4 and Tegaderm. 14:37:34 Post Procedure Pulses reassessed and unchanged 14:37:37 Post-procedure physical assessment completed. ASA score P 2 - A patient with mild systemic disease as per Eyad Ccaeres MD. 14:37:39 Post procedure rhythm: unchanged. 14:37:42 Estimated blood loss: 10 ml 14:37:44 Post procedure instruction explained to patient.Patient verbalizes understanding. 14:37:44 Patient needs reinforcement of post procedure teaching. 14:37:57 Procedure type changed to Cath procedure, Diagnostic procedure, LHC, LHC w/Coronaries w/Grafts, PCI procedure, Coronary Stent, Coronary Stent Initial, PTCA, PTCA Additional 14:37:58 Procedure and supply charges have been captured, reviewed, submitted and are correct. 14:38:01 Procedure Complication : No complications 14:38:34 Vital chart was stopped 14:38:34 See physician's report for complete and final results. 14:38:38 Report given to [facility] II. 14:38:40 Patient transfered to [facility] with Bed. 14:38:43 Procedure ended. 14:38:43 Full Disclosure recording stopped 14:38:47 End room use (Document Last) Intervention Summary Intervention Notes Time ActionType Lesion and Equipment Used Action# Pressure Duration Attributes 14:33:15 Place stent 1st Diag LES RX 2.5 x 1 21 00:10 12 stent ([id number]) 14:34:24 Reinflate Prox LAD LES RX 2.5 x 1 17 00:10 stent 12 stent balloon ([id number]) Device Usage Item Name Manufacture Quantity Catalog Number Hospital Part Current M inimal Lot# / Charge Number Stock Stock Serial# Code Tegaderm 4 x 4 3M 1 1626W 924225 216898 312515 5 (1626W) ACIST Manifold Acist 1 65012 757508 156400 609482 5 (21116) Medical Systems Inc ACIST Hand Acist 1 03663 305351 132465 034644 5 Control Medical (79454) Systems Inc ACIST Syringe Acist 1 32430 573788 101477 810189 2 0 (17771) Medical Systems Inc Bag Decanter Microtek 1 2002S 636482 52502 908034 5 (2002S) Medical Inc. Medline Cath Medline 1 [id number] 377459 63235 914982 5 Pack ([id number]) DIAGNOSTIC Cardinal 1 PS1219 869681 20833 099794 3 0 Multipack 5Fr Health catheter set (WZ7245) EMERALD Guide Cardinal 1 502-455 521988 173740 045355 5 Wire (502-455) Health SHEATH 5FR Terumo 1 JSL930 701262 886457 738394 5 Bayard (GDP660) MULTIPACK Cardinal 1 650804 5 Pigtail 5 Fr Health catheter MULTIPACK JL Cardinal 1 491850 5 4.0 5Fr Health catheter SHEATH 6FR Terumo 1 KJA144 360873 810786 196082 4 0 Bayard (YZC666) MULTIPACK 3DRC Cardinal 1 866383 5 5Fr catheter Health INFLATOR Merit Merit 1 XF1708 953772 399345 170707 1 5 [facility] (AJ3596) GUIDE 6FR Cardinal 1 [id number] 922329 089703 149310 1 0 XBLAD 3.5 Health catheter ([id number]) CHOICE PT [place] 2 [id number] 724497 980272 886890 5 Extra Support Scientific 182cm wire ([id number]) DIAGNOSTIC AR2 Cardinal 1 [id number] 019766 526495 758661 2 0 MOD 5 Fr Health catheter (143300F) LES RX 2.5 x Medtronic 1 [id number] 163158 4223779 518089 5 [id number] 12 stent ([id number]) EXOSEAL 6Fr Cardinal 1 EX600 054583 164650 438067 1 0 (EX600) Health Signature Audit [place] Stage Time Signature Unsigned Intra-Procedure 05/16/2019 Brandt Manuel 2:38:58 PM RT(R) Signatures Monitor : Brandt Manuel RT Signature : Date : Time : [place] [address] [place] [address]
[~2019-05-15 21:11] MED LIST changes: +DEXILANT60 MG PO; +REGLAN10 MG PO
[2019-05-15] MEDS ORDERED: PROZAC20 MG PO (21:20)
[2019-05-15] MEDS ORDERED: REPATHA SY140 MG/1 M SC (21:21)
[2019-05-15] MEDS ORDERED: DORZOLAMIDE-TI1 EACH EACH EYE (21:23)
[2019-05-15] MEDS ORDERED: XALATAN 0.0052.5 ML EACH EYE (21:23)
[2019-05-15 22:10] VITALS: BP 126/69
[2019-05-15 22:21] LABS: BASOPHILS 0.2 % (0-2); EOSINOPHILS 3.4 % (0-7); HEMATOCRIT 38.9 % (36.0-48.0); HEMOGLOBIN 13.3 g/dL (12-16); IMMATURE GRANULOCYTES 0.2 % (0-5); LYMPHOCYTES 36.5 % (15-50); MCHC 34.2 g/dL (31.0-37.0); MCV 87.6 fL (80.0-100.0); MEAN PLATELET VOLUME 10.8 fL (7.4-10.4); MONOCYTES 11.3 % (2-11); NEUTROPHILS 48.4 % (40-80); PLATELET COUNT 249 10x3/uL (130-400); RBC 4.44 10x6/uL (4.00-5.40); RDW 12.2 % (11.5-14.5); WBC 6.1 10x3/uL (4.8-10.8)
[2019-05-15 22:26] LABS: ALBUMIN 3.5 g/dL (3.4-5.0); ALKALINE PHOSPHATASE 117 U/L (46-116); ALT (SGPT) 11 U/L (10-68); CALC OSMOLALITY 276 mosm/kg (275-300); CALCIUM 8.7 mg/dL (8.5-10.1); CARBON DIOXIDE 27.2 mmol/L (21.0-32.0); CHLORIDE - SERUM 102 mmol/L (98-107); GLUCOSE 140 mg/dL (74-106); POTASSIUM - SERUM 4.6 mmol/L (3.5-5.1); PROTEIN - SERUM 7.3 g/dL (6.4-8.2); SODIUM 137 mmol/L (136-145); UREA NITROGEN 16 mg/dL (7-18); eGFR NON AFRICAN AMERICAN 57 mL/min (90-120)
[2019-05-15 22:31] LABS: APTT 26.9 SECONDS (22.8-39.4); D-DIMER-QUANTITATIVE 0.44 ug/mLFEU (0.20-0.54)
[2019-05-15 22:32] LABS: INR 1.24 (0.85-1.17); PROTIME 15.1 SECONDS (11.6-15.0)
[2019-05-15 22:50] LABS: CKMB 0.6 U/L (0.0-3.6); CREATINE KINASE 135 UL (21-215); TROPONIN-I < 0.017 ng/mL (0.000-0.060)
--- NOTE | 2019-05-16 00:03 | NUR ---
PT UP TO THE RESTROOM.
[2019-05-16 01:44] VITALS: BP 137/59; Ht 175.3 cm; Wt 69.6 kg
--- NOTE | 2019-05-16 03:38 | NUR ---
PATIENT RESTING COMFORTABLY IN BED. RESPIRATIONS ARE EVEN AND UNLABORED. NO S/S OF DISTRESS. CALL LIGHT WITHIN REACH. WILL CPOC.
[2019-05-16 04:00] VITALS: BP 108/51
[2019-05-16 08:03] VITALS: BP 114/68
--- NOTE | 2019-05-16 09:00 | NUR ---
CONSENTS SIGNED FOE=R LHC. WILL CONT. PLAN OF CARE.
[2019-05-16 11:53] VITALS: BP 119/75
--- NOTE | 2019-05-16 14:37 | HP ---
PATIENT: JEFF NAYAK MEDICAL RECORD: [id number] ACCOUNT: [id number] LOCATION:[address] : 40 ADMISSION DATE: 05/16/19 PCP: BUBBA BLACKBURN MD HISTORY AND PHYSICAL EXAMINATION ADMITTING DIAGNOSES: 1. Unstable angina class IV. 2. Coronary artery disease. 3. Previous multivessel percutaneous transluminal coronary angioplasty stent. 4. Hyperlipidemia. HISTORY OF PRESENT ILLNESS: Mrs. Nayak presents with 1 day of increasing anginal symptomatology, it is just like that of her previous angina. She continues to have chest pain, is even having chest pain this morning. Her chest pain now is a 4/10, yesterday was an 8/10. Last cardiac intervention was in October. She is on Imdur. Her heart rate is in the 50s, systolic blood pressure is approximately 110 and she is on maximal medical therapy for her heart rate and blood pressure. Her EKG is with no acute ST-T abnormalities. Troponin is normal. PHYSICAL EXAMINATION: GENERAL APPEARANCE: Well-nourished, well-developed, appears stated age. Level of distress, comfortable. PSYCHIATRIC: Mental status, alert, normal affect. Orientation, oriented to time, place and person. EYES: Lids and conjunctiva, noninjected. No discharge, no pallor. ENT: Lips, teeth, gums, normal dentition. Oropharynx, no cyanosis, no pallor. NECK: Carotid arteries, bilateral normal upstroke, no bruits, no thrills. JUGULAR VEINS: No jugular venous pressure or distention. CERVICAL LYMPH NODES: Nontender, nonenlarged. THYROID: Not enlarged. Nontender. No nodules. LUNGS: Respiratory effort, unlabored. CHEST: Normal curvature. No thoracic deformity. No chest wall tenderness. Percussion, resonant. Auscultation, clear. No wheezes, no rales, no rhonchi. CARDIOVASCULAR: Precordial exam, nondisplaced. No heaves or pericardial thrills. Rate and rhythm, regular. Heart sounds, normal S1, normal S2. No S3, no gallop, no rub. Systolic murmur, not heard. Diastolic murmur, not heard. EXTREMITIES: No cyanosis, no edema. Peripheral pulses, full and equal in all extremities, except as noted. No bruits appreciated. ABDOMEN: Soft, nondistended. Normal aorta. No bruit. Nontender. No masses. Liver, nontender, no hepatomegaly. Spleen, nontender, no splenomegaly. MUSCULOSKELETAL: No joint tenderness. No joint swelling. No erythema. NEUROLOGICAL: Normal gait, normal strength, normal tone. SKIN: Warm and dry. OVERALL IMPRESSION: Unstable angina class IV symptomatology in a patient with a past history of multivessel coronary artery disease on optimal medical therapy. We will proceed with coronary angiography. Further care depends upon findings of the angiography. TRANSINT:[id number] Voice Confirmation ID: [id number] DOCUMENT ID: [id number] HISTORY AND PHYSICAL [id number] JEFF NAYAK, ANDRIY CALDWELL at 1437 CC: [id number] DICTATION DATE: 05/16/19847 LINTER SAW SHARPENER: 05/16/19 09 ADM IN [place] [id number] [place] [id number]
--- NOTE | 2019-05-16 14:40 | NUR ---
PRE-OPS GIVEN. TO HAY STACKER BY BED.
--- NOTE | 2019-05-16 15:07 | NUR ---
BACK FROM MANAGER STARS. VS WNL. RIGHT GROIN STABLE WITHOUT BLEEDING OR HEMATOMA NOTED. WILL MONITOR.
[2019-05-16] MEDS ORDERED: PLAVIX75 MG PO (15:51)
[2019-05-16 16:08] VITALS: BP 148/71
--- NOTE | 2019-05-16 18:30 | NUR ---
BED REST UP. GROIN STABLE.
--- NOTE | 2019-05-19 08:52 | MORECARE ---
CASE MANAGEMENT DISCHARGE SUMMARY PATIENT: JEFF RICHARDSON UNIT: [id number] ADM DATE: 05/16/19 AGE: 78 : 40 SEX: F ROOM/BED: D.3707 AUTHOR: TOÑITO CISNEROS PHYSICIAN: REFERRING PHYSICIAN: ANDRIY HARKINS MD DATE OF SERVICE: 05/19/19 Discharge Plan Patient Name: JEFF RICHARDSON [facility] : 1940 Planned Disposition: Home Anticipated Discharge Date: 05/16/19 Discharge Date: 05/16/2019 Expected LOS: 1 Initial Reviewer: [email or web address] Initial Review Date: 05/19/2019 Generated: 05/19/19 9:52 am Patient Name: JEFF RICHARDSON Page 05403 at 0852 All edits/amendments must be made on the electronic document DICTATION DATE: 05/19/19 0851 PROCESSOR INSPECTOR: LORELEI 05/19/19 0851 RPT#: [id number] DC DATE:05/16/19 STATUS: DIS IN [facility] [address] [place] [address] END OF REPORT
--- NOTE | 2019-05-19 18:38 | OP ---
PATIENT NAME: JEFF RICHARDSON MEDICAL RECORD: [id number] :40 LOCATION:D.M2 D.2117 ADMISSION DATE:05/16/19 SURGEON: ANDRIY HARKINS MD DATE OF OPERATION: 05/16/2019 DATE OF SERVICE: 05/16/2019 PROCEDURES: 1. PTCA stent LAD diagonal. 2. PTCA LAD. 3. Left heart catheterization. 4. Selective coronary angiography. 5. Left ventriculogram. INDICATION: Unstable angina and coronary artery disease. PROCEDURE PERFORMED: After informed consent was obtained and after a detailed description of risks, benefits as well as alternative therapies, the patient elected to proceed with angiogram and angioplasty. The right femoral area was prepped and draped in normal sterile fashion. Right femoral artery was cannulated via modified Seldinger technique with placement of 6-Divehi sheath. All catheters exchanged through this sheath. FINDINGS: The left ventriculogram was performed in standard 30-degree GOLDBERG view, reveals preserved cardiac wall motion, ejection fraction of 55%. SELECTIVE CORONARY ANGIOGRAPHY: 1. Left main is with no significant angiographic disease. 2. Left anterior descending and diagonal, both have previously placed stents. There is 85-90% in-stent restenosis of the LAD, 95% in-stent restenosis of the LAD diagonal. 3. Left circumflex is totally occluded. 4. Vein graft to the distal circumflex is widely patent. 5. Right coronary is totally occluded. 6. Vein graft to the right coronary is widely patent. PTCA STENT OF THE LAD DIAGONAL: The stent used was a 2.5 x 12 mm Jose. Result was 0% residual stenosis. PTCA OF THE LAD: The stent balloon was taken to the LAD. Multiple inflations made to 21 atmospheres. Result was 0% residual stenosis. OVERALL IMPRESSION: Successful percutaneous transluminal coronary angioplasty stent of the left anterior descending diagonal as well as percutaneous transluminal coronary angioplasty of the left anterior descending, both going from 85-95% initial stenosis to 0% residual. TRANSINT:[id number] Voice Confirmation ID: [id number] DOCUMENT ID: [id number] OPERATIVE REPORT [id number] JEFF RICHARDSON ANDRIY HARKINS MD at 1838 CC: [id number] DICTATION DATE: 05/16/19 1444 MACHINE I CUTTER: 05/16/19 1531 DIS IN 05/16/19 [facility] [address] [facility]
--- NOTE | 2019-05-19 18:39 | DS ---
PATIENT:JEFF NAYAK :40 MEDICAL RECORD: [id number] DISCHARGE SUMMARY ADMISSION DATE: 05/16/19 DISCHARGE DATE: 05/16/19 DATE OF DISCHARGE: 05/16/2019 DIAGNOSES: 1. Unstable angina. 2. Coronary artery disease. 3. Percutaneous transluminal coronary angioplasty stent left anterior descending and diagonal this admission. HOSPITAL COURSE: Mrs. Nayak presents with anginal symptomatology, found to have critical disease of the LAD diagonal, underwent successful PTCA stent of this territory with no further anginal symptomatology. Discharged home with the addition of aspirin and Plavix to her medical regimen. TRANSINT:[id number] Voice Confirmation ID: [id number] DOCUMENT ID: [id number] ANDRIY HARKINS MD at 1839 CC: [id number] DICTATION DATE: 05/16/19 1442 OIL BURNER TECHNICIAN: 05/17/19 0154 DIS IN 05/16/19 [place] [address] [place] [address]
== END 2019-05-16 19:28 | disposition home or self-care (01) ==
LOC: D.ER 21:11 → D.M2 05-16 00:22 → OBSVTIME 05-16 00:22 → D.M2 05-16 19:28
PROVIDERS: Emergency Medicine; ADMIT Internal Medicine Interventional Cardiology; ATTEND Internal Medicine Interventional Cardiology
DX: I25.110 Atherosclerotic heart disease of native coronary artery with unstable angina pectoris (principal); E78.5 Hyperlipidemia, unspecified
CPT/HCPCS: 93458; 92920; C9600

== ENCOUNTER 2019-08-09 11:35 | Outpatient (CLI) | payer MEDICARE, OTHER ==
[~2019-08-09] VITALS: Ht 175.3 cm; Wt 65.6 kg
--- NOTE | ~2019-08-09 | HEMODYNAMI ---
PATIENT:JEFF RICHARDSON MEDICAL RECORD: [id number] : 40 LOCATION:[facility].[address] [facility]# [id number] ADMISSION DATE: 08/09/19 Generatedon:08/10/201912:06 Patient name: JEFF RICHARDSON Patient #: [id number] SSN: : 1940 Date of study: 08/10/2019 Page: Of Hemodynamic Procedure Report Patient Data Patient Demographics Procedure consent was obtained First Name: JEFF Gender: Female Last Name: DEBRA : 1940 Middle Initial: CHRISTIANO Age: 78 year(s) Patient #: [id number] Race: Additional ID: [id number] Contact details [address]: [address] [place] [address] State: [place] City: [place] Zip code: [address] Past Medical History Allergies Allergen Reaction Date Comments Reported Other allergy 03/08/2016 Iodine, Prednisone, Morphine Other allergy 05/16/2019 IODINATED CONTRAST Other allergy 08/10/2019 PREDNISONE, IODINATED CONTRAST ORAL AND IV, SULFA, MORPHINE Admission Admission Data Admission Date: 08/09/2019 Admission Time: 14:17 Arrival Date: 08/09/2019 Arrival Time: 0:00 Room #: 2124 Height (in.): 69 BSA: 1.8 (m2) Height (cm.): 175.26 BMI: 21.49 (kg/m2) Weight (lbs.): 145.51 Weight (kg.): 66 Lab Results Lab Result Date: 08/10/2019 Lab Result Time: 0:00 Biochemistry Name Units Result Min Max BUN mg/dl 17 --(---*)-- 7 18 Creatinine mg/dl 0.8 --(-*--)-- 0.6 1.3 eGFR ml/min 73.60025 *-(----)-- 90 120 NONAFRICAN CBC Name Units Result Min Max Hematocrit % 39.9 -*(----)-- 42 54 Hemoglobin g/dl 13.3 -*(----)-- 13.5 17.5 Procedure Procedure Types Cath Procedure Diagnostic Procedure LHC LHC w/Coronaries w/Grafts Sedation Charges Moderate Sedation up to 30 minutes PCI Procedure PTCA PTCA Initial Procedure Description Procedure Date Procedure Date: 08/10/2019 Procedure Start Time: 11:39 Procedure End Time: 12:02 Procedure Staff Name Function Adiel Camargo MD Performing Physician Aislinn Lui RT Monitor Nelsy Galloway RT Scrub Usha Faust RN Nurse Procedure Data Cath Procedure Fluoroscopy Diagnostic fluoroscopy Total fluoroscopy Time: 7.6 time: 7.6 min min Diagnostic fluoroscopy Total fluoroscopy dose: 629 dose: 629 mGy mGy Contrast Material Contrast Material Type Amount (ml) Isovue 300 113 Entry Location Entry Primary Successful Side Size Upsize Upsize Entry Closure Succes sful Closure Location (Fr) 1 (Fr) 2 (Fr) Remarks Device Remarks Femoral Right 5 Fr 6 Fr Exoseal artery Short Estimated blood loss: 5 ml Diagnostic catheters Device Type Used For End Catheter Placement MULTIPACK JL 4.0 5Fr Left Coronary catheter Angiography DIAGNOSTIC JL 3.5 5Fr Left Coronary catheter ([id number]) Angiography MULTIPACK 3DRC 5Fr Right Coronary catheter Angiography MULTIPACK Pigtail 5 Fr Multi-vessel catheter Angiography Procedure Complications No complications Procedure Medications Medication Administration Route Dosage 0.9% NaCl I.V. 100 ml/hr Oxygen etCO2 Nasal cannula 2 l/min Lidocaine 2% added to field 20 Heparin Flush Bag added to field 2 bags (1000units/500ml NS) Versed I.V. 2 mg Fentanyl I.V. 50 mcg Heparin Bolus I.V. 5000 units Fentanyl I.V. 50 mcg Hemodynamics Rest BSA: 1.8 (m2) HGB: 13.3 (g/dl) O2 Consumption: Estimated: 152.39 (ml/min) O2 Con sumption indexed: Estimated:84.66 (ml/min/m) Heart Rate: 55 (bpm) Pressure Samples Time Site Value (mmHg) Purpose Heart Use Rate(bpm) 11:48 LV 151/12,17 Snapshot 62 Snapshots Pre Cath Intra NCS Post Cath Vital Signs Time Heart Resp SPO2 etCO2 NIBP (mmHg) Rhythm Pain Sedation Rate (ipm) (%) (mmHg) Status Level (bpm) 11:30:39 57 17 97 29 156/62(122) SB 0 (11) 10(A) , No pain 11:35:05 54 13 97 33.7 141/56(95) SB 0 (11) 10(A) , No pain 11:39:25 54 11 98 15.7 134/56(109) SB 0 (11) 10(A) , No pain 11:43:43 53 18 98 28.4 124/58(91) SB 0 (11) 9(A) , No pain 11:47:57 58 16 97 15.7 130/60(101) SB 0 (11) 9(A) , No pain 11:52:17 56 14 98 17.9 117/48(81) SB 0 (11) 9(A) , No pain 11:56:31 60 18 98 15.7 117/52(89) SB 0 (11) 9(A) , No pain 12:00:45 61 18 98 12 128/54(98) SB 0 (11) 10(A) , No pain Medications Time Medication Route Dose Verified Delivered Reason Notes Effectiveness by by 11:29:32 0.9% NaCl I.V. 100 Adiel Usha used for ml/hr St Jose Faust procedure MD ZULUAGA 11:29:38 Oxygen etCO2 2 Adiel Howarda used for Nasal l/min [facility] Jose Faust procedure cannula RN 11:29:43 Lidocaine 2% added 20ml Adiel Chun for local to vial [facility] anesthetic field MD CALDWELL 11:29:47 Heparin Flush added 2 Adiel Adiel used for Bag to bags [facility] procedure (1000units/500ml field MD CALDWELL NS) 11:37:48 Versed I.V. 2 mg Adiel Usha for sedation St Jose Faust MD RN 11:37:54 Fentanyl I.V. 50 Adiel Usha for sedation mcg St Jose Faust MD RN 11:42:06 Fentanyl I.V. 50 Adiel Orozcoyla for sedation mcg St Jose Faust MD RN 11:50:36 Heparin Bolus I.V. 5000 Adiel Howarda for verif ied units St Jose Faust anticoagulation with Dr. CALDWELL RN Madelin Procedure Log Time Note 11:04:46 Procedure Status Urgent Heart Cath (IP). 11:04:49 Usha Faust RN sent for patient. Start room use. 11:04:52 Signed procedure consent form obtained from patient. 11:17:54 Patient allergic to Other allergyPREDNISONE, IODINATED CONTRAST ORAL AND IV, SULFA, MORPHINE 11:18:32 Lab Result : BUN 17 mg/dl ::32 Lab Result : Creatinine 0.8 mg/dl :18:32 Lab Result : eGFR NONAFRICAN 73.94731 ml/min :18:32 Lab Result : Hemoglobin 13.3 g/dl :18:32 Lab Result : Hematocrit 39.9 % 11:19:01 Patient Weight : 145.51 lbs 11:19:05 Patient Height : 69 inches 11:19:12 Arrival Date: 08/09/2019 12:00:00 AM 11:20:58 Patient received from Med II to CCL 1 Alert and oriented. Tansferred to table in Supine position. 11:21:00 Warm blankets applied, and vivian hugger turned on for patient comfort. 11:21:00 Correct patient and procedure confirmed by team. 11:21:00 ECG and BP/O2 sat monitors applied to patient. 11:29:23 Vital chart was started 11::32 0.9% NaCl 100 ml/hr I.V. was administered by Usha Faust RN; used for procedure; Verbal order read back and verified. 11:29:38 Oxygen 2 l/min etCO2 Nasal cannula was administered by Usha Faust RN; used for procedure; Verbal order read back and verified. 11:29:43 Lidocaine 2% 20ml vial added to field was administered by Adiel Camargo MD; for local anesthetic; Verbal order read back and verified. 11:29:47 Heparin Flush Bag (1000units/500ml NS) 2 bags added to field was administered by Adiel Camargo MD; used for procedure; Verbal order read back and verified. 11:32:37 Baseline sample Acquired. 11:32:41 Rhythm: sinus rhythm 11:32:43 Full Disclosure recording started 11:32:46 H&P Date Dictated: 08/10/2019 New H&P dictated by physician.. 11:32:48 Pre-procedure instructions explained to patient. 11:32:48 Pre-op teaching completed and patient verbalized understanding. 11:32:49 Family in waiting room. 11:32:51 Patient NPO since Midnight. 11:32:52 Is the patient allergic to Iodine/contrast media? Yes. 11:32:58 Was the patient premedicated? Yes 11:33:08 Is patient on blood thinner?Yes 11:33:12 ACC The patient was administered the following blood thiners within the last 24 hours: ACCPlavix 11:33:15 Patient diabetic? Yes. 11:33:16 If diabetic: On Metformin? No 11:33:18 Previous problem with sedation/anesthesia? No ? 11:33:20 Snore? Yes 11:33:21 Sleep apnea? No 11:33:23 Deviated septum? No 11:33:23 Opens mouth fully? Yes 11:33:24 Sticks out tongue? Yes 11:33:26 Airway obstruction? No ? 11:33:28 Dentures? No ? 11:33:32 Pre procedure: right dorsailis pedis pulse 1+ Palpable, but thready & weak; easily obliterated 11:33:34 Pre procedure: left dorsailis pedis pulse 1+ Palpable, but thready & weak; easily obliterated 11:33:37 Patient pain scale 0/10 ?. 11:33:49 IV patent on arrival in right antecubital with 0.9% NaCl at [facility]. 11:33:52 Lab results completed and on chart. 11:34:07 Right groin area was prepped with chlora-prep and draped in sterile fashion 11:34:08 Alarms reviewed by R. N. 11:34:08 Sharps counted by scrub and verified by R.N. 11:35:47 Physician arrived 11:35:48 --------ALL STOP TIME OUT------ 11:35:49 Final Timeout: patient, procedure, and site verified with staff and physician. All members of the team are in agreement. 11:35:52 Right groin site verified by team. 11:36:03 Fire Safety Assessment: A--An alcohol-based skin anteseptic being used preoperatively., C--Open oxygen or nitrous oxide is being used., D--An ESU, laser, or fiber-optic light is being used. 11:36:09 Physical assessment completed. ASA score P 2 - A patient with mild systemic disease as per Adiel Camargo MD. 11:37:48 Versed 2 mg I.V. was administered by Usha Govind RN; for sedation; Verbal order read back and verified. 11:37:54 Fentanyl 50 mcg I.V. was administered by Usha Faust RN; for sedation; Verbal order read back and verified. 11:38:13 2) 60-89 Mildly reduced kidney function, and other findings (as for stage 1) point to kidney disease. 11:38:25 Sedation plan: IV Moderate Sedation Medication:Versed, Fentanyl 11:39:25 Maximum allowable contrast dose (3.7 X eGFR X 0.75)202 ml. 11:39:28 Procedure started. 11:39:32 Local anesthetic to right femoral artery with Lidocaine 2% by Adiel Camargo MD.INITIAL ACCESS ONLY 11:39:39 A 5 Fr sheath was inserted into the Right Femoral artery 11:39:42 Use device set Femoral Dx 11:39:43 ACIST Syringe (77402) opened to sterile field. 11:39:43 Bag Decanter (2002S) opened to sterile field. 11:39:44 Medline Cath Pack ([id number]) opened to sterile field. 11:39:45 ACIST Hand Control (94972) opened to sterile field. 11:39:45 ACIST Manifold (51935) opened to sterile field. 11:39:46 DIAGNOSTIC Multipack 5Fr catheter set (EX0147) opened to sterile field. 11:39:46 Tegaderm 4 x 4 (1626W) opened to sterile field. 11:39:48 SHEATH 5FR [place] (XDL677) opened to sterile field. 11:39:48 EMERALD Guide Wire (993-590) opened to sterile field. 11:40:13 A MULTIPACK JL 4.0 5Fr catheter was advanced over the wire and used for Left Coronary Angiography. 11:42:06 Fentanyl 50 mcg I.V. was administered by Usha Faust RN; for sedation; Verbal order read back and verified. 11:42:54 Catheter removed. unable to cannulate vessel. 11:43:09 A DIAGNOSTIC JL 3.5 5Fr catheter (092741C) was advanced over the wire and used for Left Coronary Angiography. 11:43:35 LCA angiography performed. 11:43:38 Injector settings: Ml/sec: 3, Volume: 6, 11:45:05 Catheter removed. 11:45:16 A MULTIPACK 3DRC 5Fr catheter was advanced over the wire and used for Right Coronary Angiography. 11:46:07 RCA angiography performed. 11:46:08 SVG angiography performed. 11:46:10 Injector settings: Ml/sec: 3, Volume: 6, 11:48:05 Catheter removed. 11:48:10 A MULTIPACK Pigtail 5 Fr catheter was advanced over the wire and used for Multi-vessel Angiography. 11:48:19 LV hemodynamics recorded. 11:48:20 LV gram done using GOLDBERG 11:49:30 Injector settings: Ml/sec: 5, Volume: 15, 11:49:31 Catheter removed. 11:49:56 Proceeding to intervention. 11:50:25 GUIDE 6FR XBLAD 3.5 catheter ([id number]) opened to sterile field. 11:50:26 WHISPER 300cm guide wire ([id number]) opened to sterile field. 11:50:26 INFLATOR Merit BasixCompak (HG7015) opened to sterile field. 11:50:27 SHEATH 6FR [place] (BAF798) opened to sterile field. 11:50:36 Heparin Bolus 5000 units I.V. was administered by Usha Faust RN; for anticoagulation; verified with Dr. Yusuf Verbal order read back and verified. 11:50:39 Sheath upsized to a 6 Fr Short. 11:50:50 6 Fr XBLAD 3.5 guide catheter was inserted over the wire 11:50:57 Pre PCI Site: [place] pLAD has 80% stenosis. 11:50:59 ACC Pre-intervention LAURA Flow is 3. 11:53:05 Guide Catheter removed. unable to cannulate vessel. 11:53:16 GUIDE 6FR EBU 3.0 catheter (CF3YOX23) opened to sterile field. 11:53:33 6 Fr EBU 3 guide catheter was inserted over the wire 11:56:39 WHISPSER wire advanced. 11:58:51 Inflate balloon Inflation number: 1 A NC EUPHORA 3.0 x 20 balloon ([id number]) was prepped and advanced across the Prox LAD 80, then inflated to 16 LINDSAY for 0:30 (min:sec) . 11:59:38 Balloon removed over the wire. 11:59:40 ACT drawn and resulted at 249 seconds. (normal therapeutic range 180-240 seconds). 11:59:40 Wire removed. 11:59:40 Guide catheter removed. 11:59:45 ACC Post-intervention LAURA Flow is 3. 11:59:55 EXOSEAL 6Fr (EX600) opened to sterile field. 12:00:18 Sheath removed intact; hemostasis achieved with Exoseal to the Right Femoral artery. 12:00:21 Procedure ended.(Physican Out) 12:00:34 Fluoroscopy time 07.60 minutes. 12:00:40 Fluoroscopy dose: 629 mGy 12:00:40 Flurop Dose total: 629 12:00:49 Dose Area Product 66936 mGy/cm. 12:00:54 Contrast amount:Isovue 300 113ml. 12:00:56 Sharps counted by scrub and verified by R.N. 12:01:14 Insertion/operative site no bleeding no hematoma. 12:01:18 Post-op/insertion site Right Femoral artery dressed using a 4 x 4 and Tegaderm. 12:01:21 Post right femoral artery:stable 12:01:24 Post Procedure Pulses reassessed and unchanged 12:01:26 Post procedure rhythm: unchanged. 12:01:28 Estimated blood loss: 5 ml 12:01:30 Post procedure instruction explained to patient.Patient verbalizes understanding. 12:01:31 Patient needs reinforcement of post procedure teaching. 12:01:54 Procedure type changed to Cath procedure, Diagnostic procedure, LHC, LHC w/Coronaries w/Grafts, Sedation Charges, Moderate Sedation up to 30 minutes, PCI procedure, PTCA, PTCA Initial 12:01:56 Procedure and supply charges have been captured, reviewed, submitted and are correct. 12:02:01 Procedure Complication : No complications 12:02:05 Vital chart was stopped 12:02:06 See physician's report for complete and final results. 12:02:10 Report given to Pre/Post Procedure Room. 12:02:14 Patient transfered to Pre/Post Procedure Room with Stretcher. 12:02:18 Procedure ended. 12:02:18 Full Disclosure recording stopped 12:02:24 ACC-PCI Only Patient was given prescriptions, or instructed by Adiel Camargo MD to start/continue the following medications upon discharge: Plavix 12:02:26 End room use (Document Last) Intervention Summary Intervention Notes Time ActionType Lesion and Equipment Action# Pressure Duration Attributes Used 11:58:51 Inflate Prox LAD NC EUPHORA 1 16 00:30 balloon 3.0 x 20 balloon ([id number]) Device Usage Item Name Manufacture Quantity Catalog Hospital Part Current Minimal Lot# / Number Charge Number Stock Stock Serial# Code ACIST Acist 1 80584 575354 184951 650675 20 Syringe Medical (75907) Systems Inc Bag Decanter Microtek 1 2001S 632478 19072 930252 5 () Medical Inc. Medline Cath Medline 1 [id number] 064676 67884 993824 5 Pack ([id number]) ACIST Hand Acist 1 48570 510028 561221 767032 5 Control Medical (52962) Systems Inc ACIST Acist 1 16244 435290 451410 857261 5 Manifold Medical (61765) Systems Inc DIAGNOSTIC Cardinal 1 SM2084 287167 88144 967746 30 Multipack Health 5Fr catheter set (NK3029) Tegaderm 4 x 3M 1 1626W 037368 652596 298921 5 4 (1626W) SHEATH 5FR Terumo 1 ZES903 837071 900399 462079 5 [place]add[place] (SMA738) EMERALD Cardinal 1 502-455 765385 405513 614279 5 Guide Wire Health (502-455) MULTIPACK JL Cardinal 1 987441 5 4.0 5Fr Health catheter DIAGNOSTIC Cardinal 1 [id number] 035730 284264 092188 5 JL 3.5 5Fr Health catheter (344655W) MULTIPACK Cardinal 1 774809 5 3DRC 5Fr Health catheter MULTIPACK Cardinal 1 002747 5 Pigtail 5 Fr Health catheter GUIDE 6FR Cardinal 1 [id number] 664374 129102 895486 10 XBLAD 3.5 Health catheter (21806438) WHISPER Dickinson 1 [id number] 124794 116712 074962 5 300cm guide Vascular wire (5460246GY) INFLATOR Merit 1 KF3511 628224 785202 499076 15 [employer] Medical BasixCompak (PE6637) SHEATH 6FR Terumo 1 FKO215 479654 600421 636580 40 [place]addo (ZHG114) GUIDE 6FR Medtronic 1 YS1QAR84 147374 74197 297263 0 EBU 3.0 catheter (FM3ARU31) NC EUPHORA Medtronic 1 [id number] 906757 791689 780116 0 [id number] 3.0 x 20 balloon ([id number]) EXOSEAL 6Fr Cardinal 1 EX600 822579 980039 783843 10 (EX600) Health Signature Audit [place] Stage Time Signature Unsigned Intra-Procedure 08/10/2019 Aislinn Lui 12:05:59 PM RT(R) Intra-Procedure 08/10/2019 Usha Faust 12:06:26 PM RN Intra-Procedure 08/10/2019 Adiel Leon 12:06:50 PM Jose [facility]DWELL [facility] [address] [place] [address]
[~2019-08-09 11:35] MED LIST changes: +DORZOLAMIDE-TI1 EACH EACH EYE; +PROZAC20 MG PO; +REPATHA SY140 MG/1 M SC
[2019-08-09 12:03] LABS: BASOPHILS 0.2 % (0-2); EOSINOPHILS 1.7 % (0-7); HEMATOCRIT 44.4 % (36.0-48.0); HEMOGLOBIN 14.9 g/dL (12-16); IMMATURE GRANULOCYTES 0.3 % (0-5); MCH 30.2 pg (26.0-34.0); MCHC 33.6 g/dL (31.0-37.0); MCV 89.9 fL (80.0-100.0); MEAN PLATELET VOLUME 10.7 fL (7.4-10.4); MONOCYTES 7.2 % (2-11); NEUTROPHILS 70.6 % (40-80); RBC 4.94 10x6/uL (4.00-5.40); RDW 12.1 % (11.5-14.5); WBC 9.7 10x3/uL (4.8-10.8)
[2019-08-09 12:13] LABS: ALBUMIN 3.9 g/dL (3.4-5.0); ALKALINE PHOSPHATASE 114 U/L (46-116); ALT (SGPT) 11 U/L (10-68); BILIRUBIN - TOTAL 0.67 mg/dL (0.2-1.3); CALC OSMOLALITY 277 mosm/kg (275-300); CALCIUM 9.2 mg/dL (8.5-10.1); CARBON DIOXIDE 31.2 mmol/L (21.0-32.0); CHLORIDE - SERUM 100 mmol/L (98-107); GLUCOSE 149 mg/dL (74-106); POTASSIUM - SERUM 4.1 mmol/L (3.5-5.1); PROTEIN - SERUM 7.8 g/dL (6.4-8.2); SODIUM 137 mmol/L (136-145); UREA NITROGEN 16 mg/dL (7-18); eGFR NON AFRICAN AMERICAN 57 mL/min (90-120)
[2019-08-09 12:15] LABS: INR 0.99 (0.85-1.17); PROTIME 12.6 SECONDS (11.6-15.0)
[2019-08-09 12:16] LABS: APTT 28.9 SECONDS (22.8-39.4)
[2019-08-09 12:26] LABS: CKMB 0.7 U/L (0.0-3.6); CREATINE KINASE 67 UL (21-215); MAGNESIUM - SERUM 1.9 mg/dL (1.8-2.4); PRO BNP 309 pg/mL (0-450); TROPONIN-I < 0.017 ng/mL (0.000-0.060)
[2019-08-09 12:31] LABS: PLATELET COUNT 306 10x3/uL (130-400)
[2019-08-09 13:05] VITALS: BP 153/69
[2019-08-09 13:39] LABS: APPEARANCE CLEAR (CLEAR); BACTERIA FEW /hpf (NEGATIVE); BILIRUBIN NEGATIVE (NEGATIVE); COLOR YELLOW (YELLOW); EPITHELIAL CELLS 0-5 /hpf (0-5); GLUCOSE NEGATIVE (NEGATIVE); KETONE NEGATIVE (NEGATIVE); NITRITE NEGATIVE (NEGATIVE); PROTEIN NEGATIVE (NEGATIVE); RED CELLS - URINE 0-5 /hpf (0-5); UROBILINOGEN NORMAL (NORMAL); WHITE CELLS - URINE 0-5 /hpf (NEGATIVE)
[2019-08-09 14:41] VITALS: BP 116/41
--- NOTE | 2019-08-09 15:30 | NUR ---
PT ARRIVED TO FLOOR FROM ER. SPOUSE AT BEDSIDE. DENIES ANY NEEDS AT THIS TIME, WILL CONT TO FOLLOW POC
[2019-08-09 16:00] VITALS: BP 130/51
[2019-08-09 16:28] VITALS: BP 130/51; Ht 175.3 cm; Wt 65.6 kg
--- NOTE | 2019-08-09 19:20 | NUR ---
RECEIVED REPORT, WILL ASSUME CARE OF PT, DENIES ANT NEEDS, BED IS LOW, SRX2, CALL LIGHT IN REACH, WILL CONTINUE PLAN OF CARE
[2019-08-09 19:31] LABS: CKMB 0.5 U/L (0.0-3.6); CREATINE KINASE 60 UL (21-215); TROPONIN-I < 0.017 ng/mL (0.000-0.060)
[2019-08-09 19:59] VITALS: BP 126/57
--- NOTE | 2019-08-09 20:05 | NUR ---
RECEIVED NEW ORDERS FOR CATH, CONSENTS SIGNED AND PLACED IN CHART
[2019-08-09 23:42] VITALS: BP 133/53
[2019-08-10 03:50] VITALS: BP 113/42
--- NOTE | 2019-08-10 04:55 | NUR ---
I have reviewed this patient and I concur with the Shift Assessment completed by the Licensed Practical Nurse today this shift.
[2019-08-10 06:11] LABS: BASOPHILS 0.1 % (0-2); EOSINOPHILS 0.1 % (0-7); HEMATOCRIT 39.9 % (36.0-48.0); HEMOGLOBIN 13.3 g/dL (12-16); IMMATURE GRANULOCYTES 0.3 % (0-5); LYMPHOCYTES 16.5 % (15-50); MCH 29.6 pg (26.0-34.0); MCHC 33.3 g/dL (31.0-37.0); MCV 88.7 fL (80.0-100.0); MEAN PLATELET VOLUME 10.7 fL (7.4-10.4); MONOCYTES 2.2 % (2-11); NEUTROPHILS 80.8 % (40-80); PLATELET COUNT 260 10x3/uL (130-400); RDW 12.1 % (11.5-14.5)
[2019-08-10 06:20] LABS: WBC 6.9 10x3/uL (4.8-10.8)
[2019-08-10 06:40] LABS: ALKALINE PHOSPHATASE 99 U/L (46-116); ALT (SGPT) 12 U/L (10-68); BILIRUBIN - TOTAL 0.39 mg/dL (0.2-1.3); CALC OSMOLALITY 281 mosm/kg (275-300); CALCIUM 8.6 mg/dL (8.5-10.1); CARBON DIOXIDE 26.8 mmol/L (21.0-32.0); CHLORIDE - SERUM 104 mmol/L (98-107); CKMB 0.7 U/L (0.0-3.6); CREATINE KINASE 51 UL (21-215); CREATININE - SERUM 0.8 mg/dL (0.6-1.3); GLUCOSE 139 mg/dL (74-106); MAGNESIUM - SERUM 1.7 mg/dL (1.8-2.4); POTASSIUM - SERUM 3.8 mmol/L (3.5-5.1); PROTEIN - SERUM 6.5 g/dL (6.4-8.2); SODIUM 139 mmol/L (136-145); TROPONIN-I < 0.017 ng/mL (0.000-0.060); UREA NITROGEN 17 mg/dL (7-18); eGFR NON AFRICAN AMERICAN 73 mL/min (90-120)
[2019-08-10 08:00] VITALS: BP 137/59
--- NOTE | 2019-08-10 10:18 | NUR ---
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
--- NOTE | 2019-08-10 12:05 | NUR ---
BALLOONED LAD R GROIN 6F EXO. 5000H 2 100
--- NOTE | 2019-08-10 12:13 | CN ---
PATIENT NAME:JEFF NAYAK MEDICAL RECORD: [id number] : 40 LOCATION:D. D.2124 ADMIT DATE: 08/09/19 ACCOUNT: [id number] CONSULTING PHYSICIAN: APRIL WASHINGTON MD REFERRING PHYSICIAN: RAMSES RODRIGES DO DATE OF CONSULTATION: 08/10/2019 HISTORY OF PRESENT ILLNESS: Ms. Nayak is a 78-year-old female with a history of coronary artery disease, status post intervention via Dr. Caceres for restenosis, has been having exertional angina was actually seen in the office, started on long-acting nitrates, had onset of rest symptomology on date of admission. Additionally, reports an episode of syncope. This was not classic orthostatic, did undergo CT scanning of the head with no significant pathology. We are asked to see her concerning her cardiovascular status. PAST MEDICAL HISTORY: Includes: 1. History of hypertension. 2. Hyperlipidemia. 3. Coronary artery disease as described above. MEDICATIONS: Include isosorbide dinitrate 30 mg p.o. b.i.d., Reglan 5 mg b.i.d., meclizine 12.5 every day, Lasix 20 mg p.o. b.i.d., potassium 20 mEq b.i.d., Prozac 20 every day, aspirin 81 every day, Plavix 75 every day, and Repatha 140 mg q.2 weeks. ALLERGIES: CONTRAST, SULFA, MORPHINE, PREDNISONE. REVIEW OF SYSTEMS: The patient reports easy bruising but reports no swollen glands. The patient reports no fever, no night sweats, no significant weight gain, no significant weight loss. No significant exercise tolerance. The patient reports no dry eyes, no irritation, no vision change. Patient reports no difficulty hearing and no ear pain. Patient reports no frequent nose bleeds or nose and sinus problems. Patient reports on arm pain on exertion. No shortness of breath while lying down. No history of heart murmur. Patient reports no cough, no wheezing or coughing up blood. Patient reports no abdominal pain, no vomiting. Normal appetite. No diarrhea and not vomiting blood. No nausea and no constipation. Patient reports no incontinence. No difficulty urinating. No hematuria. No increased frequency. Patient reports no muscle aches. No weakness, no arthralgias, no back pain. No swelling of the extremities. Patient reports no abnormal mole, no jaundice, no rashes. Reports no loss of consciousness. No weakness and no numbness. No seizures, dizziness, or headaches. The patient reports no depression, no sleep disturbance, feeling safe in a relationship and no alcohol abuse. Patient reports on fatigue. Reports no runny nose or sinus pressure. No itching, no hives, and no frequent sneezing. SOCIAL HISTORY: Lives with her . Nonsmoker, occasional glass of wine. Does try to walk on a semi regular basis. PHYSICAL EXAMINATION: GENERAL: Pleasant female in no acute distress, appears stated age. VITAL SIGNS: Blood pressure 111/42, pulse 63 and regular. HEENT: Normocephalic, atraumatic. NECK: No JVD or bruit. HEART: Regular, II/ systolic ejection murmur. CONSULT REPORT [id number] JEFF ANYAK LUNGS: Good air excursion. ABDOMEN: Soft, nontender. EXTREMITIES: Pulses 2+ with no edema. DIAGNOSTIC DATA: ECG shows a right bundle branch, ST-T changes, rightward axis. IMPRESSION: Class IV angina at this point despite increasing medications on outpatient basis. We will plan for angiography, intervention based on the above. TRANSINT:[id number] Voice Confirmation ID: [id number] DOCUMENT ID: [id number] APRIL WASHINGTON MD at 1213 CC: [id number] DICTATION DATE: 08/10/19900 WALLET ASSEMBLER: 08/10/19 1054 ADM IN [place] [address] [place] [address]
[2019-08-10] MEDS ORDERED: ISOSORBIDE MONO30 M1 PO (14:52)
--- NOTE | 2019-08-10 14:54 | NUR ---
SPOKE TO JAMISON MORRELL FOR PT TO D//C
--- NOTE | 2019-08-10 16:14 | NUR ---
PT GOT UP POST CATH, NO ISSUES STATED OR NOTED. SITE CDI. NO COMPLAINTS OR CONCERNS VOICED AT THIS TIME.
--- NOTE | 2019-08-10 17:16 | NUR ---
PT ESCORTED OUT VIA WHEELCHAIR TO HUSBANDS POV.
--- NOTE | 2019-08-11 09:37 | MORECARE ---
CASE MANAGEMENT DISCHARGE SUMMARY PATIENT: JEFF NAYAK UNIT: [id number] ADM DATE: 08/09/19 AGE: 78 : 40 SEX: F ROOM/BED: D.4094 AUTHOR: TOÑITO CISNEROS PHYSICIAN: REFERRING PHYSICIAN: RAMSES RODRIGES DO DATE OF SERVICE: 08/11/19 Discharge Plan Patient Name: JEFF [facility]AYAK [facility] [facility] 1940 Planned Disposition: Home Anticipated Discharge Date: 08/10/19 Discharge Date: 08/10/2019 Expected LOS: 1 Initial Reviewer: [email or web address] Initial Review Date: 08/11/2019 Generated: 08/11/19 10:36 am Coverage Notice Reviewer: [email or web address] Mari Sen Notice Issued Date-Time: 08/09/2019 14:45 Notice Type: Medicare Outpatient Observation Notice Notice Delivered To: Patient Relationship to Patient: Self 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 Patient Name: JEFF NAYAK Page [phone] at 0937 All edits/amendments must be made on the electronic document DICTATION DATE: 08/11/19935 DIE MAKER STAMPING: LORELEI 08/11/19935 RPT#: [id number] DC DATE:08/10/19 STATUS: DIS IN [facility] [address] [place] [address] END OF REPORT
--- NOTE | 2019-08-13 11:07 | OP ---
PATIENT NAME: JEFF RICHARDSON MEDICAL RECORD: [id number] :40 LOCATION:D.OPS ADMISSION DATE: SURGEON: APRIL WASHINGTON MD DATE OF OPERATION: 08/10/2019 PROCEDURE: Left heart catheterization, selective coronary angiography, right femoral artery approach. CATHETERS: A 5-Slovak sheath, 5/4 left and right Kvng, 5/4 pig. The procedure was well tolerated. The patient returned to the rodrigues, sheath removed. ExoSeal device placed. FINDINGS: Left ventriculography in 30-degree GOLDBERG view: Normal wall motion. Normal systolic function. CORONARY ANATOMY: LEFT MAIN: Left main is free of disease. LAD: In the area of previous stenting shows about 80% diffuse in-stent restenosis. The diagonal stent itself is widely patent. CIRCUMFLEX: Totally occluded. Saphenous vein graft to circumflex is widely patent with a filling of both the small OMs nicely. RIGHT CORONARY ARTERY: Proximal previous stent has a possible stenosis of a questionable flow obstructive. IMPRESSION AND PLAN: Intervention to the re-stenotic LAD momentarily. DESCRIPTION OF PROCEDURE: A 5-Slovak sheath was exchanged for 6-Slovak sheath. EBU 3.5 guide catheter provided fair guide catheter support, followed by a 300 cm Whisper wire was placed across the restenotic stent down this portion of vessel. We used a 3.0 noncompliant balloon. Attempted to oversize the indwelling stent, inflated this up to 18 atmospheres for 1 minute. Final angiography showed excellent resolution of diffuse in-stent restenosis. No significant residual. Nice stepdown distally with good plumping of the distal vasculature. LAURA flow was 3 throughout the procedure. The patient was previously on Plavix, heparin used in the lab. Sheath closed with ExoSeal device. TRANSINT:[id number] Voice Confirmation ID: [id number] DOCUMENT ID: [id number] APRIL WASHINGTON MD at 1107 CC: [id number] DICTATION DATE: 08/10/19 1209 PYROTECHNIST: 08/10/19 2256 DEP CLI 08/10/19 [place] [address]
--- NOTE | 2019-08-13 11:08 | EC ---
PATIENT:JEFF RICHARDSON DATE OF SERVICE: 08/09/19 SEX: F MEDICAL RECORD: [id number] DATE OF : 40 LOCATION:[facility] AGE OF PATIENT: 78 ADMISSION DATE: 08/09/19 REFERRING PHYSICIAN: INTERPRETING PHYSICIAN: APRIL WASHINGTON MD ECHOCARDIOGRAM REPORT ECHO CHARGES 4 ECHO COMPLETE Date: 08/10/19 CLINICAL DIAGNOSIS: DYSPNEA/MURMUR ECHOCARDIOGRAPHIC MEASUREMENTS (adult normal given) AC root (d.<3.7cm) 3.3 cm LV Septum d (<1.2 cm> 1.0 cm Valve Excursion 1.7 cm LV Septum (systole) 1.5 cm Left Atria (s.<4.0cm> 4.4 cm LVPW d(<1.2cm) 1.0 cm RV (d.<2.3cm) 2.6 cm LVPW (sytole) 1.7 cm LV diastole(<5.6CM) 4.7 cm MV E-F(>70mm/sec) cm LV systole 2.5 cm LVOT Diameter 1.7 cm MV exc.(>10mm) cm Est.ejection fraction (50-75%) % DOPPLER: LVIT cm/sec A 96.0 cm/sec E 134 cm/sec LA cm/sec RVSP 44.2 mmHg LVOT 117 cm/sec AOP1/2T m/s Asc. Ao 168 cm/sec RVOT 61.0 cm/sec RA cm/sec PA 88.0 cm/sec AV Gradient Peak 11.3 mmHg AV Mean 5.5 mmHg AV Area 1.5 cm MV Gradient Peak 11.0 mmHg MV Mean 3.4 mmHg MV Area cm COMMENTS: Hand Bender: Gavino MYRICKOE Larriman Helper: 3 Dr. Yusuf TAPE# PACS Pericardial Effusion N DATE OF SERVICE: Adequate 2D, color flow, spectral Doppler, and M-Mode. No LVH. LV internal dimension is normal. Wall motion is normal. EF is greater than or equal to 55%. Aortic valve sclerosis without stenosis by Doppler interrogation. Left atrium is mildly dilated at 4.4 cm. Mitral valve shows no prolapse. [id number] MR. Right-sided chambers are grossly normal. Moderate TR. TRANSINT:[id number] Voice Confirmation ID: [id number] DOCUMENT ID: [id number] ECHOCARDIOGRAM REPORT [id number] JEFF RICHARDSON,APRIL Mckoy MD at 1108 CC: [id number] DICTATION DATE: 08/11/19 1042 PEDIATRIC SOCIAL WORKER: 08/11/19 1130 DEP CLI 08/10/19 [place] [id number] [place] [id number]
[2019-08-18 16:10] LABS: AEROBE ID Final report (())
== END 2019-08-10 17:16 | disposition home or self-care (01) ==
LOC: OBSVTIME → D.OPS 11:35 → D.ER 11:35 → EDSTATUS 13:52 → OBSVTIME 14:17 → D.M2 14:17 → D.ER 14:17 → D.M2 15:31 → D.OPS 08-10 17:16 → D.M2 08-10 17:16
PROVIDERS: Family Medicine; ATTEND Family Medicine
DX: I25.110 Atherosclerotic heart disease of native coronary artery with unstable angina pectoris (principal); E11.65 Type 2 diabetes mellitus with hyperglycemia; K21.9 Gastro-esophageal reflux disease without esophagitis; T82.855A Stenosis of coronary artery stent, initial encounter; Y83.9 Surgical procedure, unspecified as the cause of abnormal reaction of the patient, or of later complication, without mention of misadventure at the time of the procedure; I10 Essential (primary) hypertension; G89.29 Other chronic pain; M54.9 Dorsalgia, unspecified